=== PATIENT | male | born 1965 | race Caucasian/White ===

== ENCOUNTER 2016-12-01 15:29 | Inpatient (IN) | payer OTHER ==
--- NOTE | ~2016-12-01 | CR126 ---
[facility] A Service of [facility] RADIOLOGY TEXT RESULTS PATIENT: GOLD WELLS LOCATION: [facility] : [birth year] UNIT #: [id number] AGE: [address]: Rivka Brice MD SEX: M ORDER DR: [id number] [facility] [address] [facility]. [place], [place] [address] [id number] I MR#: [id number] Acc #: [id number] NAME: GOLD WELLS : 1965 SEX: M STUDY DATE/TIME: 12/01/2016 15:42 UNIT: [address] ROOM: [facility] STUDY DESCRIPTION: CR Foot Complete Min 3 View Lt Attending Physician: Rivka Brice M.D. Ordering Physician: Umm Lopez M.D. Primary Care Physician: Primary Care Physician No MEDICAL IMAGING REPORT This report is preliminary unless electronic signature is present EXAM Left foot. HISTORY Redness and open wound in heel region. Patient is diabetic. Fell one month ago. Symptoms began today. FINDINGS Three views of the left foot were obtained and compared to 11/10/2016. There is an abnormal appearance to the calcaneus which appears to be fractured. This fracture was visible on the prior study. There is loss of height of the calcaneus. The other bones appear normal. IMPRESSION There appears to be a recent fracture of the calcaneus with loss of height of the calcaneus. The fracture was visible on 11/20/2016 and there has not been a great deal of change. I do not see any definite evidence of osteomyelitis. Dictated by... Fer Balbuena M.D. THIS IS AN ELECTRONICALLY VERIFIED REPORT Fer Balbuena M.D. at 12/02/2016 12:24 PM ANDREW/parviz TD: 12/02/2016 07:41 JOB #: [id number] MEDICAL IMAGING REPORT [facility] A Service of [facility] RADIOLOGY TEXT RESULTS PATIENT: GOLD WELLS LOCATION: [facility] : [birth year] UNIT #: [id number] AGE: [address]: Rivka Brice MD SEX: M ORDER DR: RUTHIE
--- NOTE | ~2016-12-01 | XA166 ---
[facility] A Service of [facility] & [facility] RADIOLOGY TEXT RESULTS PATIENT: GOLD WELLS LOCATION: [facility] 478-01 : [birth year] UNIT #: [id number] AGE: [address]: Seng Hernandez MD SEX: M ORDER DR: [id number] [facility] [address] [facility]. [place], [place] [address] [id number] I MR#: [id number] Acc #: [id number] NAME: GOLD WELLS : 1965 SEX: M STUDY DATE/TIME: 12/04/2016 12:39 UNIT: [facility] ROOM: [facility] STUDY DESCRIPTION: XA PICC Line Placement WO Port Attending Physician: Seng Hernandez M.D. Ordering Physician: Seng Hernandez M.D. Primary Care Physician: No Primary Care Physician MEDICAL IMAGING REPORT This report is preliminary unless electronic signature is present PRE-PROCEDURE The procedure was explained to the patient and/or patient customer success representative including risks, benefits, potential complications and potential for alternative forms of treatment. Informed consent was obtained, and prior to initiating the procedure a formal timeout procedure was performed. INDICATION 51-year-old male who needs IV access for antibiotics. PROCEDURE Using full standard sterile barrier technique, including caps, gowns, gloves, masks, as well as sterile skin preparation and standard sterile draping, the right arm was prepped and draped in the usual fashion, and real-time sterile ultrasound guidance was used to localize an arm vein and to confirm vessel patency. A hard copy ultrasound image was recorded. Right basilic vein was utilized. After local anesthesia with 1% Xylocaine, the vein was punctured using real-time sterile ultrasound guidance, and an 0.018 guidewire was advanced into the superior vena cava, using fluoroscopic guidance. A 4-Mongolian 39 cm single-lumen PICC was then measured and deployed with the tip positioned in the superior vena cava. The position of the line was documented with a radiographic image. The line was secured in place with an adhesive dressing and an antibiotic patch was applied. Total fluoro time was 0.1 minutes. Reference air kerma is 3 mGy. IMPRESSION Successful placement of a 4-Mongolian 39 cm single-lumen PowerPICC via the right arm under ultrasound and fluoroscopic guidance. The tip of the PICC is in good position in the superior vena cava. Dictated by... Noel Myers M.D. [facility] A Service of [facility] RADIOLOGY TEXT RESULTS PATIENT: GOLD WELLS LOCATION: [facility]- : [birth year] UNIT #: [id number] AGE: [address]: Seng Hernandez MD SEX: M ORDER DR: THIS IS AN ELECTRONICALLY VERIFIED REPORT Noel Myers M.D. at 12/04/2016 4:58 PM Reji TD: 12/04/2016 16:43 JOB #: [id number] MEDICAL IMAGING REPORT COPY
--- NOTE | ~2016-12-01 | EKG ---
PATIENT: GOLD WELLS UNIT #: [id number] Ventricular Rate: 86 BPM Atrial Rate: 86 BPM P-R Interval: 146 ms QRS Duration: 86 ms Q-T Interval: 334 ms QTC Calculation(Bezet): 399 ms P [place]: 53 degrees Calculated R [place]: 45 degrees Calculated T [place]: 82 degrees Diagnosis Line: Normal sinus rhythm Diagnosis Line: Normal ECG Diagnosis Line: When compared with ECG of 27-OCT-2014 20:27, Diagnosis Line: No significant change was found Diagnosis Line: Confirmed by MARYAN COVINGTON MD ([id number]) on Diagnosis Line: 12/04/2016 12:03:36 AM INTERPRETING MD: NADYA KRISHNAMURTHY
--- NOTE | ~2016-12-01 | US136 ---
[facility] A Service of [facility] & [facility] RADIOLOGY TEXT RESULTS PATIENT: GOLD WELLS LOCATION: [place] [address]- : [birth year] UNIT #: [id number] AGE: [address]: Rivka Brice MD SEX: M ORDER DR: [id number] [facility] [address] [facility]. [place], [place] [address] [id number] I MR#: [id number] Acc #: [id number] NAME: GOLD WELLS : 1965 SEX: M STUDY DATE/TIME: 12/02/2016 15:23 UNIT: [facility] ROOM: [facility] STUDY DESCRIPTION: US U/L Ext Art Study Ltd Bilat Attending Physician: Rivka Brice M.D. Ordering Physician: Rivka Brice M.D. Primary Care Physician: No Primary Care Physician MEDICAL IMAGING REPORT This report is preliminary unless electronic signature is present EXAM Left ankle-brachial index. HISTORY 51-year-old male with history of diabetes, hypertension, hyperlipidemia, left lower extremity ulcerations. History of neuropathy and left foot wound. FINDINGS The left ankle-brachial index is 1.16. The left toe-brachial index is 0.7. IMPRESSION Normal left ankle-brachial index. Slightly decreased toe-brachial index, which may indicate small vessel disease in the left foot. Dictated by... Noel Myers M.D. THIS IS AN ELECTRONICALLY VERIFIED REPORT Noel Myers M.D. at 12/04/2016 7:38 AM VICKIE/uri TD: 12/03/2016 15:11 JOB #: [id number] MEDICAL IMAGING REPORT COPY
--- NOTE | ~2016-12-01 | DS ---
Unit #: [id number] #: [id number] Patient: GOLD WELLS [id number] [address] [place], [place] [address] [id number] I MR#: [id number] NAME: GOLD WELLS ROOM: 478 Age: 51 Sex: M Admission Date: 12/01/2016 : 1965 Discharge Date: 12/05/2016 Attending Physician: Seng Hernandez M.D. Primary Care Physician: Primary Care Physician No DISCHARGE SUMMARY ADMITTING DIAGNOSIS Open wound on heel. DISCHARGE DIAGNOSES Diabetes mellitus type 2, poorly controlled; neuropathy; hypertension; recent left calcaneal fracture with superimposed ulcer and treating as some possible left calcaneal osteomyelitis. CONSULTANTS Dr. Barbour. HISTORY OF PRESENTING ILLNESS The patient is a 51-year-old man with type 2 diabetes, poorly controlled; neuropathy; hypertension; post left calcaneal fracture a few weeks ago, presented to the emergency room with a chief complaint of purulent drainage from the left heel. HOSPITAL COURSE He had wound cultures done. Wound cultures grew MSSA and Streptococcus species. He was seen by Orthopedic Service, they recommended him to have nonweightbearing on the left leg. With the concern for recent calcaneal fracture, where the periosteum will get exposed and the wound culture growing bacteria. He is getting treated with antimicrobials. He also got an MRI of the foot done. The MRI of the foot shows comminuted central third collapsed calcaneal fracture, has a subacute appearance and nonenhancing fluid along the fracture lines. Wound in the posterior heel measures about 4.3 x 2.2 cm, marrow edema throughout the calcaneus, presumably be fascial related tibiotalar effusion, osteochondral chronic appearing lesion, edema throughout the talus, nonenhancing subcutaneous inflammation likely reactive. Though the MRI suggest there is no evidence of osteomyelitis with a high possibility of the fluid collection around the fracture. We are treating as an osteomyelitis. We got a PICC line in place. I spoke with the patient in detail, I explained him that the PICC line can increase risk for DVTs and if he noticed any edema of the feet, he needs to call the physician and I explained him about the possible complications of Rocephin including jaundice and anaphylactic reaction. He understands and agrees. We are trying to arrange for home IV antimicrobials. PHYSICAL EXAMINATION VITAL SIGNS: On the day of the discharge, temperature 98.1, pulse rate 88, respiratory rate 18, blood pressure 118/65. GENERAL: The patient is alert and oriented x3, lying in the bed, in no Unit #: [id number] #: [id number] Patient: GOLD WELLS acute distress. HEENT: Normocephalic, atraumatic. No icterus. VENKATESH. Extraocular muscles are intact. NECK: Supple. No JVD. HEART: S1 and S2. Regular rate and rhythm. CHEST: Bilateral equal entry. Clear to auscultation. ABDOMEN: Soft, nontender. EXTREMITIES: Left foot in dressing. DISCHARGE MEDICATIONS Include Lantus 55 units subcu daily, Tylenol p.r.n., Lyrica 150 mg p.o. t.i.d., Tradjenta 10 mg daily, hydrochlorothiazide 25 mg daily, simvastatin 20 mg daily, lisinopril 10 mg daily, and Rocephin 2 g IV daily for 6 weeks, multivitamin one capsule p.o. daily. FOLLOWUP He is instructed to follow up with his primary care and with Orthopedics as an outpatient. Total time spent in his care 35 minutes. Dictated by... Navdeep Del Real/akira TD: 12/07/2016 02:09 JOB #: [id number] DISCHARGE SUMMARY X X DISCHARGE SUMMARY
--- NOTE | ~2016-12-01 | HP ---
Unit #: [id number] #: [id number] Patient: GOLD WELLS [id number] [address] [address] [id number] I MR#: [id number] NAME: GOLD WELLS ROOM: 311 Age: 51 Sex: M Admission Date: 12/01/2016 : 1965 Attending Physician: Del Saul M.D. Primary Care Physician: No Primary Care Physician HISTORY AND PHYSICAL CHIEF COMPLAINT Open wound on heel. HISTORY OF PRESENT ILLNESS The patient is a 51-year-old male with a history of type 2 diabetes mellitus complicated with the neuropathy and hypertension and status post left calcaneal fracture a few weeks ago, brought to the emergency room complaining of the open wound with purulent drainage from the left heel. The patient had a calcaneal fracture back in November 07, 2016, seen by the foot doctor, Dr. Barbour, and recommended conservative management with a boot. Patient took boot off today and noticed the purulent and foul drainage associated with a tenderness. The patient denies any fever, chills, nausea and no vomiting. The patient is being admitted for the above reasons. PAST MEDICAL HISTORY 1. Type 2 diabetes mellitus. 2. Neuropathy. 3. Hypertension. 4. Hyperlipidemia. 5. History of a MRSA leg abscess with the cellulitis and he had incision and drainage of this abscess. ALLERGIES No known drug allergies. HOME MEDICATIONS Lantus, lisinopril, linagliptin, hydrochlorothiazide, Lyrica, simvastatin and Centrum. FAMILY HISTORY Significant for diabetes and hypertension. SOCIAL HISTORY Denies any history of tobacco, alcohol and illicit drug abuse. REVIEW OF SYMPTOMS Fourteen-point review of symptoms performed and only pertinent positive findings are described above, remaining are negative. PHYSICAL EXAMINATION GENERAL APPEARANCE: On examination the patient is lying on a bed not in acute distress. Unit #: [id number] #: [id number] Patient: GOLD WELLS VITAL SIGNS: Temperature 97.9, pulse 100, respiratory rate 16, blood pressure 141/99 and sating 97% at room air. HEENT: Head atraumatic, normocephalic. Pupils equal, round and reacting to light and accommodation. Extraocular movements are intact. NECK: Supple. No JVD. LUNGS: Clear to auscultation bilaterally. No rhonchi. No wheezing. HEART: Regular rate and rhythm. ABDOMEN: Soft, positive bowel sounds. EXTREMITIES: Left lower extremity heel with an open wound with seropurulent drainage and erosion. No fluctuance. NEUROLOGIC: Alert, awake, oriented. No gross focal motor deficit. PSYCHIATRIC: Mood and affect are appropriate. DIAGNOSTIC STUDIES LABORATORY DATA: Glucose 429, BUN 14, creatinine 0.7, sodium 133, potassium 4.8, chloride 97, bicarb 26, calcium 8.7, lactic acid is 1.3 and beta hydroxybutyrate is 0.1 and CRP is 1.8, INR is 0.9, WBC 7.3, hemoglobin 13.8, hematocrit 41.7, platelets 230. IMAGING: Left foot x-ray shows calcaneal fracture and no evidence of osteo. ASSESSMENT 1. Diabetic foot ulcer. 2. History of a left calcaneal fracture. 3. Uncontrolled diabetes. 4. Hypertension. PLAN 1. Plan to admit the patient to inpatient with the telemetry. 2. Continue with IV antibiotics. 3. Patient has wound cultures in [facility] that show the MSSA. Will give the dose of vancomycin x1 and continue with the Zosyn for the diabetic foot ulcer and continue with the sliding scale and will have the foot doctor, Dr. Barbour to evaluate for the I/D and repeat the CBC and BMP in the morning and taper the antibiotic with the wound cultures and further recommendations will follow. Dictated by Navdeep Mayfield TD: 12/01/2016 21:49 JOB #: [id number] Unit #: [id number] #: [id number] Patient: GOLD WELLS HISTORY AND PHYSICAL X X HISTORY AND PHYSICAL
--- NOTE | ~2016-12-01 | CO ---
Unit #: [id number] #: [id number] Patient: GOLD WELLS [id number] [address] [place], [place] [address] [id number] I MR#: [id number] NAME: GOLD WELLS ROOM: 311 Age: 51 Sex: M Admission Date: 12/01/2016 : 1965 Attending Physician: Rivka Brice M.D. CONSULTATION REPORT CHIEF COMPLAINT Open wound on heel. HISTORY OF PRESENT ILLNESS This is a 51-year-old male, who initially presented to the emergency department on 11/07/2016 with approximately a 2-week history of nontraumatic heel pain. Radiograph at that time demonstrated a left calcaneal fracture. There were no areas of open wound or open skin breakdown. He was seen and evaluated in the office by Dr. Barbour on 11/20/2016, treated conservatively in a CAM walker boot. The patient noticed yesterday when he was changing a socks that he had an open area of skin breakdown that was draining over the posterior aspect of the heel. He had not noticed this prior to yesterday. He does not have any significant pain as he has neuropathy. He has not had any fevers at home. There are no streaks of redness. PAST MEDICAL HISTORY Positive for type 2 diabetes, neuropathy, hypertension, hyperlipidemia. ALLERGIES He has no known drug allergies. HOME MEDICATIONS Include Lantus, lisinopril, linagliptin, hydrochlorothiazide, Lyrica, simvastatin, and Centrum Multivitamin. FAMILY HISTORY Positive for diabetes and hypertension. SOCIAL HISTORY The patient does not smoke, use alcohol, or drugs. REVIEW OF SYSTEMS Currently without any gastrointestinal, genitourinary, or cardiopulmonary symptoms. He has not had any fevers. He does not have any significant pain. PHYSICAL EXAMINATION GENERAL: On examination today, the patient is well-developed, well-nourished. He is comfortable, lying in bed. VITAL SIGNS: This a.m., temperature of 98, pulse is 79, respirations were 18, blood pressure 114/75. Unit #: [id number] #: [id number] Patient: GOLD WELLS DIAGNOSTIC STUDIES LABORATORY RESULTS: The patient's white blood cell count this morning 7.2. C-reactive protein 1.8. Glucose is 119. The patient's left lower extremity without erythema or warmth. There are no streaks of redness. Posterior heel area with skin breakdown. An eschar 5 x 3 cm currently without purulent drainage. The patient is neuropathic. He does not have pain in this area with palpation. I am unable to palpate posterior tibial pulse or dorsalis pedis pulses. IMAGING STUDIES: Radiographs taken on 11/07/2016, 11/20/2016, and 12/01/2016, with evidence of left calcaneal fracture. No significant changes in fracture fragments or additional displacement. IMPRESSION 1. Left calcaneal fracture, nontraumatic approximately 6 weeks ago with 1- day history of left posterior heel wound and skin breakdown likely from the CAM walker boot and noncompliance with this patient walking in the boot. 2. Peripheral vascular disease. 3. Diabetic neuropathy. PLAN We will need to assess blood flow to the area to see if this ulcer would have good healing with surgical or nonsurgical intervention, as well an MRI to rule out any infection and assess the fracture itself. The patient should be nonweightbearing to the left heel. He is able to get out to the bathroom to toe-touch ambulate on the left foot only. Dry dressing over the wound. We will discuss with Dr. Barbour. Dictated by... Yarelis Bradley P.A.-C. for Navdeep Barba/akira TD: 12/02/2016 12:27 JOB #: [id number] CONSULTATION REPORT X Yarelis Bradley CONSULTATION REPORT
--- NOTE | ~2016-12-01 | A ---
[facility] Nutrition Therapy DATE: 12/02/16 Patient: GOLD WELLS Physician: KESHAWN Address: [address] [facility] Room/Bed: [address] [place] [address], Zip: [place] [address] Admit Date: 12/01/16 Date of : [birth year] Height: 5 10 Weight: 229 104 NUTRITIONAL ASSESSMENT: REASON: CONSULT RE: DIET EDUCATION HT: 5'10", WT: 228# (104 KG), BMI: 32.7 RD PROVIDED WRITTEN AND VERBAL CC DIET EDUCATION. RD PROVIDED LIST OF FOODS TO AVOID/LIMIT AND FOODS TO EAT MORE OFTEN. RD EMPHASIZED IMPORTANCE OF CONSUMING 3 BALANCED MEALS DAILY. PT REPORTS CONSUMING LARGE AMOUNTS OF POTATOES, RICE, CORN AND PASTA. RD ENCOURAGED PORTION CONTROL. PT VERBALIZED UNDERSTANDING OF THE TOPIC. PT REPORTED NO DIET QUESTIONS AT THIS TIME. RD TO REMAIN AVAILABLE RECOMMENDATIONS: 1. ENCOURAGE COMPLIANCE OF CURRENT DIET ORDER-CC RD WILL F/U PER PROTOCOL Respectfully, [place] MERRILL MS, RD, LD Food and Nutritional Services [facility] cc: client file
--- NOTE | ~2016-12-01 | MR58 ---
[facility] A Service of [facility] & [facility] RADIOLOGY TEXT RESULTS PATIENT: GOLD WELLS LOCATION: [facility] 478-01 : [birth year] UNIT #: [id number] AGE: [address]: Seng Hernandez MD SEX: M ORDER DR: [id number] [facility] [address] [place], [place] [address] [id number] I MR#: [id number] #: [id number] NAME: GOLD WELLS : 1965 SEX: M STUDY DATE/TIME: 12/02/2016 UNIT: [facility] ROOM: [facility] STUDY DESCRIPTION: Foot WWo Contrast Lt Attending Physician: Rivka Brice M.D. Ordering Physician: Yarelis Bradley P.A.-C. Primary Care Physician: Primary Care Physician No MEDICAL IMAGING REPORT This report is preliminary unless electronic signature is present EXAM MRI of the left ankle and hindfoot without and with IV contrast, 12/02/2016. HISTORY Order states calcaneal fracture. Open wound calcaneus. Orthopedic progress note states 51-year diabetic male with left calcaneal fracture about 6 weeks ago. Initial ER visit to 11/07/2016 after 2 weeks of heel pain without known trauma. Office visit Dr. Barbour 11/20/2016, treated conservatively in CAM walker boot. Patient noticed an open area with drainage 12/01/2016 when taking the boot off. Patient with neuropathy but no significant pain. Physical exam shows skin breakdown posterior heel 5 x 3 cm. No purulent drainage. The technologist reports left foot open around the heel with drainage. No related heel surgery. Diabetic. Left leg abscess x3. COMPARISON Left foot radiographs 11/07/2016, 11/20/2016, 12/01/2016. A marker was placed in the area of the reported wound in the posterior heel. There is lack of skin definition for a 4.3 x 2.3 cm zone of the posterior heel (transverse by craniocaudal). Correlate with clinical exam as this area is along the posterior edge of the coil and exact dimensions are clear. There is no evidence of an underlying abscess. Marrow edema throughout the calcaneus without T1 marrow replacement is most compatible with fracture - related edema. There is no definite evidence of underlying osteomyelitis. There is no T1 marrow replacement. There is a collapsed subacute - appearing comminuted calcaneal fracture with 3 main fracture parts. There is depression of the posterior calcaneal facet. Dominant transverse vertical mid calcaneal fracture lines. The fracture lines are filled with nonenhancing fluid. The anterior plantar portion of the dominant posterior fragment is directed in STS. [facility] A Service of [facility] RADIOLOGY TEXT RESULTS PATIENT: GOLD WELLS LOCATION: [facility] 478-01 : [birth year] UNIT #: [id number] AGE: [address]: Seng Hernandez MD SEX: M ORDER DR: plantar fascia and with an angulated bony margin which could become weightbearing. There is no overlying ulceration. There is a moderate tibiotalar effusion. There is a chronic-appearing depressed osteochondral lesion of the medial portion of the posteromedial talar dome which could be post-traumatic or arthropathic. There is pes planus which may be acquired secondary to the calcaneal fracture. No tendon pathology is noted. No ligament pathology of the ankle is noted. There is no tendon entrapment. There is generalized subcutaneous inflammation/edema without significant enhancement which is more likely reactive than infectious. IMPRESSION 1. Comminuted central third collapsed calcaneal fracture has a subacute appearance and nonenhancing fluid along the fracture lines. 2. Skin wound/lesion posterior heel measures approximately 4.3 x 2.3 cm (correlate clinically as the measurements are limited due to this area being at the edge of the coil. There is no evidence of underlying abscess or osteomyelitis. 3. Marrow edema throughout the calcaneus is presumably fracture related. There is no T1 marrow replacement to suggest osteomyelitis. 4. Tibiotalar effusion. 5. Osteochondral chronic - appearing lesion in the posteromedial dome of the talus. 6. Edema throughout the talus is probably due to altered weightbearing/reactive edema. 7. Nonenhancing subcutaneous inflammation is likely reactive. Dictated by... Yara Rivera M.D. THIS IS AN ELECTRONICALLY VERIFIED REPORT Yara Rivera M.D. at 12/04/2016 2:08 PM GUERITA/parviz TD: 12/03/2016 14:12 JOB #: [id number] MEDICAL IMAGING REPORT COPY
[~2016-12-01 15:29] MED LIST: ACETAMINOPHEN PO; BACTRIM DS TABL1 TA1 PO; BACTRIM DS TABL1 TAB PO; CLINDAMYCIN HC300 MG PO; DAKIN'S MODIF1000 ML EXT; FIORICET 50-321 EACH PO; GLUCOTROL PO; IMITREX25 MG PO; KEFLEX PO; LEVEMIR; LEVEMIR SUBQ; LEVEMIR100 UNITS/ SUBQ; LISINOPRIL; LISINOPRIL PO; LISINOPRIL10 MG PO; LORTAB 10/500 T1 TAB PO; METFORMIN PO; NEURONTIN800 MG PO; NORCO 5/325 TAB1 TAB PO; NOVOFINE; NOVOLOG MIX 70/33 ML SUBQ; NOVOLOG100 U/M1; NOVOLOG100 U/ML SUBQ; PHENERGAN25 M1 PO; TYLOX 5/500 CAP1 CAP PO; VICODIN 5/1 TAB 5/50 PO; ZOCOR PO; ZYVOX PO; [UNRECOGNIZED DRUG - OTHER] SUBQ
[2016-12-01 16:00] LABS: BASOPHIL# 0.1 X10e3 (0-0.3); BASOPHIL% 1.3 % (0-2.5); DIFF IND NO; EOSINOPHIL# 0.4 X10e3 (0-0.7); HEMATOCRIT 41.7 % (38.0-50.0); HEMOGLOBIN 13.8 gm/dL (13.0-16.0); LYMPHOCYTE# 0.9 X10e3 (1.0-3.5); LYMPHOCYTE% 12.4 % (17.0-45.0); MEAN CELL VOLUME 86.4 FL (83-96); MEAN CORPUSCULAR HEMOGLOBIN 28.7 PG (28-34); MEAN CORPUSCULAR HGB CONC 33.2 g/dL (30-36); MEAN PLATELET VOLUME 7.5 FL (6.5-11.5); MONOCYTE# 0.5 X10e3 (0-1.0); MONOCYTE% 6.6 % (3.0-12.0); NEUTROPHIL# 5.4 X10e3 (1.5-7.1); NEUTROPHIL% 74.7 % (40-75); PLATELET COUNT 230 X10e3 (140-420); RED BLOOD COUNT 4.83 X10e (3.90-5.60); RED CELL DISTRIBUTION WIDTH 13.5 % (11.0-15.5); WHITE BLOOD COUNT 7.3 X10e3 (4.0-10.5)
[2016-12-01 16:17] LABS: INR 0.9
[2016-12-01 16:18] LABS: PARTIAL THROMBOPLASTIN TIME 26.2 SECONDS (23.5-31.3)
[2016-12-01 16:34] LABS: BLOOD UREA NITROGEN 14 mg/dL (9-23); CALCIUM SERUM 8.7 mg/dL (8.4-10.2); CARBON DIOXIDE 26 mmol/L (22-31); CHLORIDE 97 mmol/L (100-111); CREATININE SERUM 0.7 mg/dL (0.6-1.4); GLOM FILT RATE Estimated ABOVE60 mL/min (>60); GLUCOSE FASTING 429 mg/dL (70-110); POTASSIUM 4.8 mmol/L (3.5-5.1); SODIUM 133 mmol/L (135-145)
[2016-12-01] MEDS ORDERED: LANTUS100 U/ML SUBQ (16:55)
[2016-12-01] MEDS ORDERED: LISINOPRIL10 MG PO (16:55)
[2016-12-01] MEDS ORDERED: HCTZ PO (16:56)
[2016-12-01] MEDS ORDERED: TRADJENTA5 MG PO (16:56)
[2016-12-01] MEDS ORDERED: LYRICA PO (16:57)
[2016-12-01] MEDS ORDERED: SIMVASTATIN20 MG PO (16:57)
[2016-12-01] MEDS ORDERED: CENTRUM SILVER PO (16:58)
[2016-12-02 07:01] LABS: BASOPHIL# 0.1 X10e3 (0-0.3); BASOPHIL% 1.2 % (0-2.5); EOSINOPHIL# 0.4 X10e3 (0-0.7); EOSINOPHIL% 5.5 % (0.0-7.0); HEMATOCRIT 38.5 % (38.0-50.0); HEMOGLOBIN 12.7 gm/dL (13.0-16.0); LYMPHOCYTE# 1.7 X10e3 (1.0-3.5); LYMPHOCYTE% 23.2 % (17.0-45.0); MEAN CELL VOLUME 85.8 FL (83-96); MEAN CORPUSCULAR HEMOGLOBIN 28.3 PG (28-34); MEAN CORPUSCULAR HGB CONC 32.9 g/dL (30-36); MEAN PLATELET VOLUME 7.4 FL (6.5-11.5); MONOCYTE# 0.6 X10e3 (0-1.0); MONOCYTE% 8.3 % (3.0-12.0); NEUTROPHIL# 4.4 X10e3 (1.5-7.1); NEUTROPHIL% 61.8 % (40-75); PLATELET COUNT 206 X10e3 (140-420); RED BLOOD COUNT 4.49 X10e (3.90-5.60); RED CELL DISTRIBUTION WIDTH 13.4 % (11.0-15.5); WHITE BLOOD COUNT 7.2 X10e3 (4.0-10.5)
[2016-12-02 07:05] LABS: DIFF IND NO
[2016-12-02 07:26] LABS: BLOOD UREA NITROGEN 8 mg/dL (9-23); CALCIUM SERUM 8.3 mg/dL (8.4-10.2); CARBON DIOXIDE 28 mmol/L (22-31); CHLORIDE 104 mmol/L (100-111); CREATININE SERUM 0.5 mg/dL (0.6-1.4); GLOM FILT RATE Estimated ABOVE60 mL/min (>60); GLUCOSE FASTING 119 mg/dL (70-110); POTASSIUM 3.5 mmol/L (3.5-5.1); SODIUM 137 mmol/L (135-145)
[2016-12-03 07:04] LABS: BLOOD UREA NITROGEN 9 mg/dL (9-23); CALCIUM SERUM 8.7 mg/dL (8.4-10.2); CARBON DIOXIDE 30 mmol/L (22-31); CHLORIDE 101 mmol/L (100-111); CREATININE SERUM 0.6 mg/dL (0.6-1.4); GLOM FILT RATE Estimated ABOVE60 mL/min (>60); GLUCOSE FASTING 192 mg/dL (70-110); MAGNESIUM 1.9 mg/dL (1.6-3.0); POTASSIUM 4.2 mmol/L (3.5-5.1); SODIUM 138 mmol/L (135-145)
[2016-12-04 03:52] LABS: HEMATOCRIT 38.6 % (38.0-50.0); HEMOGLOBIN 12.6 gm/dL (13.0-16.0); MEAN CELL VOLUME 86.5 FL (83-96); MEAN CORPUSCULAR HEMOGLOBIN 28.2 PG (28-34); MEAN CORPUSCULAR HGB CONC 32.6 g/dL (30-36); MEAN PLATELET VOLUME 7.3 FL (6.5-11.5); RED BLOOD COUNT 4.47 X10e (3.90-5.60); RED CELL DISTRIBUTION WIDTH 13.5 % (11.0-15.5); WHITE BLOOD COUNT 6.2 X10e3 (4.0-10.5)
[2016-12-05] MEDS ORDERED: ROCEPHIN2 G/VIAL INJ (15:43)
[2016-12-05] MEDS ORDERED: ACETAMINOPHEN325 MG PO (15:43)
[2017-03-15] MEDS ORDERED: PERCOCET 7.5-31 EACH PO (15:32)
[2017-03-15] MEDS ORDERED: ELIQUIS5 MG PO (15:42)
[2017-03-15] MEDS ORDERED: COATED ASPIRIN325 M1 PO (15:44)
[2017-03-15] MEDS ORDERED: FLOMAX0.4 M1 (15:45)
[2017-03-15] MEDS ORDERED: MAG-OXIDE400 MG PO (15:45)
== END 2016-12-05 16:25 | disposition home health service (06) | DRG 638 ==
LOC: CED 15:29 → CEDOF 17:30 → C3A PCU 20:08 → C4C 12-03 10:05
PROVIDERS: Family Medicine; Internal Medicine; Student in an Organized Health Care Education/Training Program
PROC: 02HV33Z Insertion of Infusion Device into Superior Vena Cava, Percutaneous Approach (ICD-10-PCS; principal; 2016-12-04)
PROC: B548ZZA Ultrasonography of Superior Vena Cava, Guidance (ICD-10-PCS; 2016-12-04)
DX: E11.69 Type 2 diabetes mellitus with other specified complication (principal); M86.8X7 Other osteomyelitis, ankle and foot; G62.9 Polyneuropathy, unspecified; E11.621 Type 2 diabetes mellitus with foot ulcer; E11.65 Type 2 diabetes mellitus with hyperglycemia; E11.40 Type 2 diabetes mellitus with diabetic neuropathy, unspecified; L97.429 Non-pressure chronic ulcer of left heel and midfoot with unspecified severity; I10 Essential (primary) hypertension; E78.5 Hyperlipidemia, unspecified; Z86.14 Personal history of Methicillin resistant Staphylococcus aureus infection; Z83.3 Family history of diabetes mellitus; Z82.49 Family history of ischemic heart disease and other diseases of the circulatory system; Z79.4 Long term (current) use of insulin; S92.002D Unspecified fracture of left calcaneus, subsequent encounter for fracture with routine healing; I73.9 Peripheral vascular disease, unspecified; S91.302A Unspecified open wound, left foot, initial encounter; B95.61 Methicillin susceptible Staphylococcus aureus infection as the cause of diseases classified elsewhere; B95.5 Unspecified streptococcus as the cause of diseases classified elsewhere
CPT/HCPCS: 36415; 73630; 73720; 76937; 77001; 80048; 80202; 82010; 82947; 83036; 83605; 83735; 85025; 85027; 85610; 85730; 86140; 87040; 87070; 87077; 87186; 87205; 93005; 93922; 96360; 97116; 97162; 99285; A9577; C1751; J1642; J1650; J1815; J2270; J2405; J2543; J2550; J3370

== ENCOUNTER 2017-02-04 11:36 | Inpatient (IN) | payer OTHER ==
--- NOTE | ~2017-02-04 | CR72 ---
[facility] A Service of [facility] & [facility] RADIOLOGY TEXT RESULTS PATIENT: GOLD WELLS LOCATION: [address] : [birth year] UNIT #: [id number] AGE: [address]: HAYLEY SAUL MD SEX: M ORDER DR: [id number] [facility] [address] [facility]. [place], [place] [address] [id number] I MR#: [id number] Acc #: [id number] NAME: GOLD WELLS : 1965 SEX: M STUDY DATE/TIME: 02/04/2017 15:02 UNIT: [facility] ROOM: [facility] STUDY DESCRIPTION: CR Chest Single View Portable Attending Physician: Hayley Saul M.D. Ordering Physician: Ed Doctor [id number] [facility] Primary Care Physician: Jennifer Cohn M.D. MEDICAL IMAGING REPORT This report is preliminary unless electronic signature is present EXAM Portable chest HISTORY Congestion, chronic. Hypoglycemia. FINDINGS Mild linear atelectasis or scarring in the lateral right base and in the left lower lung. No airspace infiltrates or effusions. Cardiac size and pulmonary vascularity are normal. Partial resection of the right eighth rib. IMPRESSION No acute findings and no active disease. Dictated by... Shaquille Puente M.D. THIS IS AN ELECTRONICALLY VERIFIED REPORT Shaquille Puente M.D. at 02/05/2017 12:50 PM ANNIA/parviz TD: 02/05/2017 06:36 JOB #: [id number] MEDICAL IMAGING REPORT Page 1 of 1 COPY
--- NOTE | ~2017-02-04 | CR229 ---
[facility] A Service of [facility] & [facility] RADIOLOGY TEXT RESULTS PATIENT: GOLD WELLS LOCATION: [facility] 340-01 : [birth year] UNIT #: [id number] AGE: [address]: America Grimes MD SEX: M ORDER DR: [id number] [facility] [address] [facility]. [place], [place] [address] [id number] I MR#: [id number] Acc #: [id number] NAME: GOLD WELLS : 1965 SEX: M STUDY DATE/TIME: 02/13/2017 15:14 [facility]: [facility] STUDY DESCRIPTION: CR Shoulder Min 2 View Lt Attending Physician: America Grimes M.D. Ordering Physician: America Grimes M.D. Primary Care Physician: Jennifer Cohn M.D. MEDICAL IMAGING REPORT This report is preliminary unless electronic signature is present EXAM Left shoulder series, 02/13/2017. HISTORY Left shoulder pain, limited range of motion. History of rotator cuff tear, 1 week duration. FINDINGS AP, internal and external rotation views of the left shoulder are presented with a transscapular view. No traumatic fracture or malalignment. The acromioclavicular and glenohumeral joint relationships appear normal. There is a linear/band-like density superimposed over the soft tissues superficial to the acromioclavicular joint. This is favored to be either clothing artifact or some form of chronic soft tissue marking. I do not believe it is acute in time course. Periarticular soft tissues, otherwise, unremarkable. The visualized ribs are intact. The visualized pulmonary parenchyma has an appearance suggesting vascular congestion and increased interstitial markings in the left lung. This could simply reflect low lung volumes. Correlate with any clinical indications of interstitial edema or pneumonia. Dictated by... Gold Gonsalves M.D. THIS IS AN ELECTRONICALLY VERIFIED REPORT Gold Gonsalves M.D. at 02/13/2017 10:50 PM DARNELL/pantera TD: 02/13/2017 22:02 JOB #: [id number] [facility] A Service of [facility] RADIOLOGY TEXT RESULTS PATIENT: GOLD WELLS LOCATION: [facility] 340-01 : [birth year] UNIT #: [id number] AGE: [address]: America Grimes MD SEX: M ORDER DR: MEDICAL IMAGING REPORT Page 1 of 1 COPY
--- NOTE | ~2017-02-04 | CO ---
Unit #: [id number] #: [id number] Patient: GOLD WELLS [id number] [address] [address] [id number] I MR#: [id number] NAME: GOLD WELLS ROOM: 18670 Age: 51 Sex: M Admission Date: 02/04/2017 : 1965 Attending Physician: Del Saul M.D. Primary Care Physician: Jennifer Cohn M.D. CONSULTATION REPORT REASON FOR CONSULTATION Critical care management and hyperglycemia. CHIEF COMPLAINT Lethargy, weakness and high blood sugar. HISTORY OF PRESENT ILLNESS Patient presented with the complaint of high blood sugar, lethargy and weakness to the emergency room and was found to be hyperglycemic with a blood sugar of 1196. I am seeing him at the bedside complaining of generalized weakness and feels thirsty. He also has a left lower extremity wound which is dressed. Denies any abdominal pain. No nausea, no chest pain, no shortness of breath. REVIEW OF SYSTEMS Positive for pallor, no edema, no cyanosis, no jaundice and the rest is as per the history of present illness. The rest of 12-point review of system has been reviewed and is negative. PAST MEDICAL HISTORY 1. Type 2 diabetes. 2. Neuropathy. 3. Hypertension. 4. Dyslipidemia. 5. History of foot cellulitis. HOME MEDICATIONS 1. Lantus. 2. Lisinopril. 3. Linagliptin. 4. Hydrochlorothiazide. 5. Lyrica. 6. Simvastatin. 7. Centrum Silver. ALLERGIES No known drug allergies. SOCIAL HISTORY Nonsmoker, no alcohol, no drug abuse. FAMILY HISTORY Diabetes, hypertension. Unit #: [id number] #: [id number] Patient: GOLD WELLS PHYSICAL EXAMINATION VITAL SIGNS: Temperature currently 99, pulse 116, respirations 16, blood pressure 96/69. NEUROLOGIC: He is lethargic. LUNGS: Bilateral air entry, bilateral mild rhonchi. HEART: S1 plus S2. ABDOMEN: Nontender, soft. Positive bowel sounds. EXTREMITIES: Positive left foot ulcer. DIAGNOSTIC STUDIES LABORATORY: Blood glucose 822, creatinine 1.1, sodium 123. White count 16, hemoglobin 12, hematocrit 42, platelet count 361. ASSESSMENT AND PLAN 1. Hyperglycemia. 2. Left foot ulcer with possible cellulitis. 3. Leukocytosis. 4. Dehydration. 5. Hyponatremia. PLAN 1. Aggressively hydrate the patient. 2. Insulin drip per non-DKA protocol. 3. IV antibiotics empirically. 4. Follow blood cultures. 5. GI and DVT prophylaxis. 6. Will review imaging. 7. Patient will be closely monitored in the ICU. 8. Please see orders for detailed plan. Thank you very much for this consultation. Dictated by... Navdeep Blair/bailey TD: 02/04/2017 17:26 JOB #: [id number] CONSULTATION REPORT Page 1 of 1 X Sweetie Bond MD CONSULTATION REPORT
--- NOTE | ~2017-02-04 | HP ---
Unit #: [id number] #: [id number] Patient: GOLD WELLS [id number] [address] [address] [id number] I MR#: [id number] NAME: GOLD WELLS ROOM: 36891 Age: 51 Sex: M Admission Date: 02/04/2017 : 1965 Attending Physician: Del Saul M.D. Primary Care Physician: Jennifer Cohn M.D. HISTORY AND PHYSICAL CHIEF COMPLAINT Weakness. HISTORY OF PRESENT ILLNESS The patient is a 51-year-old male with a history of type 2 diabetes mellitus complicated with neuropathy, hypertension, and left calcaneal fracture complicated with osteomyelitis, who was discharged from the hospital on December 05 with six weeks of IV antibiotics. The patient was discharged home on IV antibiotic with Rocephin for MSSA and streptococcus species. The patient finished the antibiotic three weeks ago, and the PICC line was removed. The patient has been feeling sick for the last four to five days associated with lethargy and decreased oral intake. The patient stated that he was taking insulin; however, the sugars were remaining high. The patient has been following with a foot doctor, Dr. Barbour, for the graft of the left calcaneal fracture. The patient is scheduled to follow with Dr. Barbour tomorrow; however, patient was brought to the emergency room with nausea and weakness for four days. The patient was found to have high sugar in the range of 1146, sodium of 108, and potassium of 5.6. The patient is being admitted for the above reasons. Patient was in the emergency room for a few hours, then he spiked a fever up to 102.1. The patient's lactic acid is 2.1, and the patient is started on sepsis protocol also. PAST MEDICAL HISTORY 1. Type 2 diabetes mellitus. 2. Neuropathy. 3. Hypertension. 4. Hyperlipidemia. 5. History of MRSA leg abscess with cellulitis. He had incision and drainage of this abscess. 6. Osteomyelitis of the left calcaneus, status post fracture. ALLERGIES No known drug allergies. HOME MEDICATIONS 1. Insulin 45 subcutaneous every evening. 2. Lexapro. 3. Simvastatin. 4. Lisinopril. 5. Lasix. 6. Lyrica. Unit #: [id number] #: [id number] Patient: GOLD WELLS FAMILY HISTORY Diabetes and hypertension. SOCIAL HISTORY Denies any history of tobacco, alcohol, or any illicit drug abuse. REVIEW OF SYSTEMS A 14-point review of symptoms was performed and only pertinent positive findings are described above. The remaining are negative. PHYSICAL EXAMINATION GENERAL: Patient was lying on bed not in acute distress, appears tired and lethargic. VITAL SIGNS: Temperature 97.7, pulse 112, respiratory rate 18, blood pressure 102/79, and saturating 97% on room air. He had a temperature spike up to 102.1. HEENT: Head atraumatic, normocephalic. Pupils equal, round, and reacting to light and accommodation. Extraocular movements are intact. NECK: Supple. LUNGS: Decreased air entry at the bases. ABDOMEN: Soft. No abdominal tenderness. EXTREMITIES: No cyanosis, no clubbing. Patient has a dressing at the left foot status post grafting, and patient was recommended by podiatry, Dr. Barbour, that this needs to be changed by their service only. Patient has minimal erythema on the top of the lower leg. PSYCHIATRIC: Mood and affect are appropriate. NEUROLOGIC: Alert, awake, oriented. No gross focal motor deficit. DIAGNOSTIC STUDIES LABORATORY: His pH is 7.36, PCO2 of 35.3, PO2 of 65.7, and bicarb 20.1. Glucose 714, glucose 1196, down to 822, BUN 49, creatinine 1.1, sodium 118 and is up to 123, potassium 4.7, chloride 91, bicarb 18, calcium 8.5, total protein 5.9, total bilirubin 0.5, and alkaline phosphatase 131. Amylase 14 and lipase 15. LDH 73. Lactic acid is 2.1. Beta hydroxybutyrate is 2.1. Anion gap is 13. INR 0.9. WBC 16.4, hemoglobin 12.7, hematocrit 42.9, platelets 361,000, neutrophils 88.3, and bands 2%. Urinalysis shows glucose more than 1000. IMAGING: Chest x-ray shows no acute findings. ASSESSMENT 1. Hyperosmolar, hyperglycemic (1) ketosis. 2. Sepsis. 3. Profound hyponatremia. 4. Dehydration. PLAN 1. Admit as inpatient to ICU. 2. Patient will have DKA protocol and continue with fluids and insulin drip. 3. Patient will have endocrine and critical care consults. 4. Continue sepsis protocol. 5. Continue with empiric vancomycin and Zosyn. 6. Patient will have aggressive IV fluids and (2) management. 7. Further recommendations will follow as more lab results are available. Dictated by Unit #: [id number] #: [id number] Patient: GOLD WELLS M.D. AMA/am TD: 02/04/2017 20:24 JOB #: [id number] HISTORY AND PHYSICAL Page 1 of 1 X X HISTORY AND PHYSICAL
--- NOTE | ~2017-02-04 | CO ---
Unit #: [id number] #: [id number] Patient: GOLD WELLS [id number] [facility]. [address] [place], [place] [address] [id number] I MR#: [id number] NAME: GOLD WELLS ROOM: CIC2 Age: 51 Sex: M Admission Date: 02/04/2017 : 1965 Attending Physician: America Grimes M.D. Primary Care Physician: Jennifer Cohn M.D. Consultation Date: 02/04/2017 CONSULTATION REPORT REASON FOR CONSULTATION Hyperglycemia. HISTORY OF PRESENT ILLNESS A 51-year-old male with history of type 2 diabetes mellitus with peripheral neuropathy, hypertension, history of left calcaneal fracture with osteomyelitis, recently discharge in November. IV antibiotics which were recently stopped. He started not been feeling well over the last 4 to 5 five days with an increasing lethargy, decrease p.o. intake. The patient reports he was taking insulin. Her blood sugars were running high. On arrival in the emergency room, his blood glucose level was 1196 with creatinine 1.1, sodium 118, potassium 5.6, chloride 86, CO2 of 19, and some positive ketones. The patient was started on insulin drip in the ER and IV hydration and IV antibiotics, was transferred to the unit bed. On admission, the patient was febrile. Fever of 102, and later to 102.1. Note: The patient was seen in the ER. MEDICAL HISTORY Please see HPI. ALLERGIES No known drug allergies. HOME MEDICATIONS Lantus 45 units every evening, Lexapro, lisinopril, Lasix, Lyrica. FAMILY HISTORY Diabetes and hypertension. SOCIAL HISTORY Declines any history of alcohol, tobacco, or illicit drugs. REVIEW OF SYSTEMS 14-point review of system was reviewed. The patient is lethargic and unable to give any good review of system at this point. He is very somnolent. PHYSICAL EXAMINATION GENERAL: He looks lethargic, but not in acute respiratory distress. VITAL SIGNS: Temperature was febrile with a temperature of 102. His blood pressure is stable. HEENT: EOMI. Pupils reactive to light. NECK: Supple. No thyromegaly noted. CHEST: Good air entry. Unit #: [id number] #: [id number] Patient: GOLD WELLS CVS: Regular rhythm. No murmurs. ABDOMEN: Soft and nontender. Bowel sounds positive. EXTREMITIES: Has left foot ulcer. NEUROLOGIC: Moving all extremities. DIAGNOSTIC STUDIES LABORATORY RESULTS: Reviewed. ASSESSMENT 1. Mild diabetic ketoacidosis. 2. Pseudohyponatremia. 3. Hyperkalemia. 4. Acute kidney injury. 5. Sepsis. PLAN Plan is to continue insulin drip, IV hydration. Monitor electrolytes closely and replace as needed. Start mag and K protocol. Continue IV antibiotics. Thanks again for consultation. Dictated by... Navdeep Abrams/akira TD: 02/06/2017 05:44 JOB #: [id number] CONSULTATION REPORT Page 1 of 1 X Preston Doll MD X CONSULTATION REPORT
--- NOTE | ~2017-02-04 | OR ---
Unit #: [id number] #: [id number] Patient: GOLD WELLS [id number] [address] [place], [place] [address] [id number] I MR#: [id number] NAME: GOLD WELLS ROOM: 340 Date of Procedure: 02/08/2017 Admission Date: 02/04/2017 Surgeon: Veronica Barbour M.D. : 1965 Attending Physician: America Grimes M.D. Primary Care Physician: Jennifer Cohn M.D. PROCEDURE OPERATIVE NOTE PREOPERATIVE DIAGNOSIS Left calcaneal osteomyelitis. POSTOPERATIVE DIAGNOSIS 1. Left calcaneal osteomyelitis. 2. Left lower leg abscess. OPERATION PERFORMED Left chwgo-nsn-drxj amputation immediate postoperative long leg cast application ([id number]). SURGEON Veronica Barbour M.D. HVAC TECH Eran ANESTHESIA General. INDICATIONS FOR SURGERY The patient is a 51-year-old male with poorly-controlled diabetes who has sustained a fracture of his calcaneus approximately 10 weeks ago with minimal trauma. He now has developed a posterior heel ulceration. He was admitted four days ago with significant hypotension and a fever. Blood cultures ultimately grew methicillin-resistant Staphylococcus aureus. The patient is obviously septic. MRI of his left leg done yesterday demonstrates osteomyelitis of the calcaneus. Arterial brachial indices demonstrates enough blood supply for healing. The patient has an unsalvageable leg and is a poorly-controlled diabetic. He is therefore to undergo a zjnfa-qgq-kxtx amputation. DESCRIPTION OF THE PROCEDURE The patient was taken to the operating room, placed in a supine position, and general anesthetic was induced. The left lower extremity was identified as the correct operative extremity in the time-out procedure. The IV antibiotics protocol was not followed because he was on IV antibiotics preoperatively. The left leg was then prepped and draped in the usual sterile fashion. The leg was exsanguinated and the thigh tourniquet inflated to 300 mmHg. A transverse incision was made 14 cm distal to the knee, a long posterior flap was developed. The tibia was exposed subperiosteally and cut with the saw. The anterior distal tibia Unit #: [id number] #: [id number] Patient: GOLD WELLS was then beveled with the saw. The anterior compartment was divided and the anterior neurovascular bundle was doubly ligated with 0-silk. The fibula was exposed with subperiosteal dissection and the fibula was cut 2 cm proximal to the tibia. The amputation knife was then used to divide the posterior soft tissues. The posterior tibial vessels and peroneal vessels were identified and doubly ligate with 0-silk. The tibial nerve was dissected high in the wound and cut proximal to the tibia. There was purulence tracking up the lateral fascia and interosseous membrane into the calf, all necrotic-appearing and infected-appearing tissue was sharply divided. The wound was copiously irrigated with 2 liters of normal saline. Aerobic and anaerobic cultures were taken prior to irrigation. A medium Hemovac drain was placed. The tourniquet was released and bleeding was controlled with electrocautery. Tourniquet time was approximately 20 minutes. The posterior fascia was then repaired to the anterior fascia and periosteum of the tibia with multiple 0-Vicryl cydbtq-mk-admmh sutures. Subcutaneous tissues was closed with 2-0 Vicryl. Skin was closed with skin uri. Xeroform gauze dressing, sponges, Webril and a long leg fiberglass cast were then applied. A supracondylar mold was placed with the cast. The leg was immobilized in full extension. The patient was then awakened in the operating room and transported to the recovery room in stable condition. ESTIMATED BLOOD LOSS 50 mL. COMPLICATIONS None. SPECIMENS 1. Aerobic and anaerobic cultures of left calf. 2. Left leg. PLAN The cast will be left in place for one week. Will continue triple IV antibiotic coverage. Dictated byNavdeep Pardo/bailey TD: 02/08/2017 22:17 JOB #: [id number] Unit #: [id number] #: [id number] Patient: GOLD WELLS PROCEDURE OPERATIVE NOTE Page 1 of 1 X Iraida Barbour MD X PROCEDURE OPERATIVE NOTE
--- NOTE | ~2017-02-04 | CO ---
Unit #: [id number] #: [id number] Patient: GOLD WELLS [id number] [address] [address] [id number] I MR#: [id number] NAME: GOLD WELLS ROOM: 340 Age: 51 Sex: M Admission Date: 02/04/2017 : 1965 Attending Physician: America Grimes M.D. Primary Care Physician: Jennifer Cohn M.D. Consultation Date: 02/07/2017 CONSULTATION REPORT REASON FOR CONSULT Hyponatremia. HISTORY OF PRESENT ILLNESS Thank you very much for having us see this patient. This patient is a 51-year-old gentleman who presented to the hospital on 02/04/2017 where he had a sugar greater than 1100, fevers, was recently discharged in November for osteomyelitis of his left foot which grew out at that time MSSA and group B strep. He was treated with Rocephin for six weeks through a PICC line which he has completed that now. He presented here with fever, high glucose. Subsequently noted to have upon presentation a sodium of 118, it did improve up to 135 and subsequently has worsened again down to 126 even with sugar better controlled with only 204 glucose today. The patient since underwent an MRI yesterday. It showed a possible abscess of his left foot. Today, he states he is depressed. He is not having any shortness of breath or chest pain. He is not having any nausea or vomiting. No abdominal pain. Does have pain in his left foot. Since his admission, he has had one blood culture grow out methicillin-resistant Staphylococcus aureus as well. PAST MEDICAL HISTORY 1. History of diabetes mellitus. 2. History of peripheral neuropathy. 3. History of the left foot calcaneal fracture and infection. 4. History of hypertension. 5. History of hyperlipidemia. CURRENT MEDICATIONS Include: 1. Vancomycin. 2. Zosyn. 3. Lyrica. 4. Lovenox. 5. Zoloft. ALLERGIES No known drug allergies. SOCIAL HISTORY No smoking, no alcohol. FAMILY HISTORY Positive for diabetes, positive for hypertension. Unit #: [id number] #: [id number] Patient: GOLD WELLS REVIEW OF SYSTEMS As mentioned in the HPI, otherwise negative. PHYSICAL EXAMINATION VITAL SIGNS: T. max 102.9, pulse 106 to 123, blood pressure 109 to 140 over 60s to 80s. He has had about 11 liters in and about 3+ liters out over the last 48 hours. HEENT: Normocephalic, atraumatic. Pupils equal, round and reactive to light. Extraocular muscles are intact. Hearing appears to be normal. Mouth is clear, no erythema or exudate. NECK: Supple. No adenopathy. HEART: He appears to have a regular rhythm without a rub. No S3 or S4 although it is tachycardic. LUNGS: Clear bilaterally. No wheezes, rhonchi or rales. ABDOMEN: Bowel sounds positive. Nontender, soft. No mass felt, no hepatosplenomegaly noted. EXTREMITIES: His left foot is dressed. He does have some mild bilateral lower extremity edema and some mild thigh edema. GENITOURINARY: Deferred. DIAGNOSTIC STUDIES LABORATORY: Sodium 126 today, potassium 4.4, chloride 97, bicarb 21, BUN 15, creatinine 0.5, glucose 204. UA upon admission showed specific gravity of 1.028, greater than 1000 glucose, no rbc's, no proteinuria. His hemoglobin is 10.4, white count is 23,100, platelets 417,000. Phosphorus 2.2. All are being replaced already. Calcium 7.9, magnesium 2, albumin 1.4. ASSESSMENT AND PLAN Hyponatremia. This gentleman has severe low sodium upon admission although that was most likely secondary to intracellular shifts from hyperglycemia although it improved and now worsening again. Certainly, I do not know the exact etiology. He does have some edema, low albumin. I do not know if this is related to hypervolemia hyponatremia versus euvolemia hyponatremia versus other. His urinalysis showed no proteinuria so I doubt he has any significant nephrotic syndrome. PLAN 1. Will check a TSH and a cortisol level in the morning. 2. Will place him on an 1800 mL p.o. fluid restriction per day. 3. Check a urine sodium and urine osmolality. 4. Will continue to follow. Will check in a.m. Depending on what it shows will depend what further workup and treatment. Dictated byNavdeep Casey TD: 02/07/2017 17:53 JOB #: [id number] Unit #: [id number] #: [id number] Patient: GOLD WELLS CONSULTATION REPORT Page 1 of 1 X Tahmina Casanova MD CONSULTATION REPORT
--- NOTE | ~2017-02-04 | MR58 ---
[facility] A Service of [facility] RADIOLOGY TEXT RESULTS PATIENT: GOLD WELLS LOCATION: [facility] 340-01 : [birth year] UNIT #: [id number] AGE: [address]: America Grimes MD SEX: M ORDER DR: [id number] [facility] [address] [place], [place] [address] [id number] I MR#: [id number] Acc #: [id number] NAME: GOLD WELLS : 1965 SEX: M STUDY DATE/TIME: 02/06/2017 17:33 [facility] ROOM: [facility] STUDY DESCRIPTION: Foot WWo Contrast Lt Attending Physician: America Grimes M.D. Ordering Physician: Physician Non-Staff Primary Care Physician: Jennifer Cohn M.D. MRI CENTER REPORT This report is preliminary unless electronic signature is present. EXAM MRI left ankle, hindfoot, and midfoot without and with IV contrast, 02/06/2017. HISTORY Order states MRI left heel rule out abscess/osteo. Infectious disease progress note 02/06/2017 states gram-positive JCP bacteremia. Recent heel osteo, status post treatment with skin graft. DKA. History sheet states patient has been receiving grafts after debridement on left heel for 6 months. 1 month ago became ill and could not get treatment. Sore or the bottom of the heel became worse. Came to the hospital 02/04/2017. Foot is heavily wrapped. 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 COMPARISON Consultation report [facility], Brenda Faith A.P.R.N. for Aidan Cm M.D. dated 02/05/2017; left foot radiographs 02/05/2017; MRI left ankle/hindfoot to 12/02/2016. FINDINGS It is not reported whether the patient has a current wound or ulceration. There is loss of skin definition and underlying subcutaneous fat/soft tissue posterior to the heel. Suspected wound or ulceration versus nonenhancing underperfused or nonperfused skin measures up to 4.4 x 3.2 cm (transverse by craniocaudal). Again noted is a comminuted, intraarticular, central third, calcaneal fracture which may represent an atypical neuropathic fracture given history and no trauma. There has been development of sizable, nonenhancing, complex signal fluid collections plantar, medial, and anteromedial to the calcaneus. The plantar and medial fluid collection measures at least 8 cm in AP dimension by 4.4 cm in transverse dimension [facility] A Service of [facility] RADIOLOGY TEXT RESULTS PATIENT: GOLD WELLS LOCATION: [facility] 340-01 : [birth year] UNIT #: [id number] AGE: [address]: America Grimes MD SEX: M ORDER DR: and communicates with the posterior vertical fracture line at the level of the posterior aspect of the posterior facet. There is probable involvement of the flexor hallucis longus tendon sheath and flexor digitorum longus tendon sheath. The vertical fracture line communicates with the posterior subtalar joint raising the possibility of septic arthritis. In addition, there is progressive fluid and synovitis in the tibiotalar joint with cranial extension lateral to the tibiotalar joint, distal tibia, and fibula extending into the lower leg and anterior compartment. Findings could reflect tracking fluid/abscess and/or nonenhancing necrotic or underperfused muscle in the anterior compartment of the lower leg. There is concern for septic tenosynovitis of the extensor digitorum. Calcaneal collapse is again noted. There is significantly progressive abnormal marrow signal throughout the calcaneus with areas of T1 marrow replacement, especially laterally and posteriorly, compatible with osteomyelitis. There has been development of a subarticular subchondral fracture of the anteromedial dome of talus at the site of a previous osteochondral abnormality. Diffuse signal abnormality throughout the talus could be secondary to early osteomyelitis and or osteonecrosis. There has also been development of abnormal signal in the distal fibula and along the physial scar of the distal tibia. Fibular findings are most suggestive of a stress or insufficiency fracture across the medullary space. Trabecular microfracture across the tibial physial scar is suspected. There has been interval detachment of the plantar fascia from the calcaneus with interposed fluid/abscess related to the large 8 x 4.4 cm collection. Cuboid, navicular, cuneiforms, and metatarsal bases show no evidence of osteomyelitis. There is a signal void in the medial hindfoot subcutaneous space just superficial to the distal posterior tibial tendon. This could reflect gas or susceptibility from prior surgery. IMPRESSION 1. Significantly progressive abnormalities throughout the lower leg, ankle, and hindfoot since the previous MRI of 12/02/2016. There is a posterior heel sizable skin and soft tissue defect (correlate with clinical exam) which appears to measure at least 4.4 x 3.2 cm. 2. Collapsed comminuted intraarticular calcaneal fracture could reflect an atypical neuropathic fracture given reported clinical history. 3. Development of a large nonenhancing complex signal fluid collection measuring least 8.0 x 4.4 cm plantar to the calcaneus extending into STS. [facility] A Service of [facility] RADIOLOGY TEXT RESULTS PATIENT: GOLD WELLS LOCATION: [facility] 340-01 : [birth year] UNIT #: [id number] AGE: [address]: America Grimes MD SEX: M ORDER DR: the posterior vertical fracture line and extending along the anteromedial calcaneus. Findings are compatible with a large abscess and/or soft tissue necrotic or underperfused soft tissue. Abscess is favored. 4. Cranially extending soft tissue signal abnormality extending anterior to the ankle and into the lower leg, predominately in the anterior compartment. Findings are compatible with additional complex signal fluid and/or nonperfused or underperfused soft tissue. 5. Concern for septic tenosynovitis of extensor digitorum, flexor hallucis longus, and probably flexor digitorum tendons. 6. Development of a subarticular fracture of the talar dome detailed above. 7. Development of osteomyelitis of the calcaneus. 8. Osteomyelitis and/or avascular necrosis of the talus. 9. Transverse at least trabecular stress or insufficiency fracture of the fibula at the level of the tibiotalar joint. 10. Trabecular microfracture across the physial scar of the tibia. 11. Gas versus postsurgical susceptibility artifact superficial to the distal posterior tibial tendon. 12. Interval detachment of the plantar fascia from the calcaneus with interposed abscess detailed above. STAT * RESULT Dictated by... Yara Rivera M.D. THIS IS AN ELECTRONICALLY VERIFIED REPORT Yara Rivera M.D. at 02/07/2017 11:24 AM GUERITA/nano TD: 02/07/2017 10:06 JOB #: [id number] MRI CENTER REPORT Page 1 of 1 COPY
--- NOTE | ~2017-02-04 | CO ---
Unit #: [id number] #: [id number] Patient: GOLD WELLS [id number] [address] [address] [id number] I MR#: [id number] NAME: GOLD WELLS ROOM: CIC2 Age: 51 Sex: M Admission Date: 02/04/2017 : 1965 Attending Physician: Del Saul M.D. Primary Care Physician: Jennifer Cohn M.D. Consultation Date: 02/05/2017 CONSULTATION REPORT REASON FOR CONSULTATION Positive blood cultures. HISTORY OF PRESENT ILLNESS This is a 51-year-old male with history of diabetes who was recently treated for left calcaneus osteomyelitis secondary to MSSA and group B strep with six weeks of Rocephin. The patient completed his course approximately 3 weeks ago. Per the family at the bedside, he has been feeling ill for approximately 1 week with decreasing appetite, oral intake and progressive lethargy and weakness. The patient was admitted to the emergency room and was found to be in DKA. The patient is being managed by Endocrinology but was also noted to have some leukocytosis and fever and one of two positive blood cultures shows Gram-positive cocci. The patient was started on vancomycin and Zosyn and ID was asked to evaluate for further management. PAST MEDICAL HISTORY Includes: 1. Diabetes type 2. 2. Neuropathy. 3. Hypertension. 4. Hyperlipidemia. 5. History of MRSA leg abscess in the past with associated cellulitis. 6. Osteomyelitis left calcaneus status post fracture. HOME MEDICATIONS 1. Vancomycin. 2. Zosyn. For other medications, please refer to patient's MAR. He is not on any pressor support but remains in the ICU. ALLERGIES No known allergies. SOCIAL HISTORY Patient denies any tobacco, alcohol, or IV drug use. REVIEW OF SYSTEMS Patient reports some intermittent headache that appears to develop when he has fever. He denies any shortness of breath, cough. He denies any current nausea, vomiting or diarrhea, however, per the family that is at the bedside, last week the patient did have some nausea and vomiting x1 and some austin-colored stool. The patient denies any pain in his lower Unit #: [id number] #: [id number] Patient: GOLD WELLS extremities. He appears to waken easily during exam. PHYSICAL EXAMINATION VITAL SIGNS: Temperature 101.3 with a T. max of 102.3, pulse 83, blood pressure 113/71, respiratory rate 26. GENERAL: This is an easy to awaken male who is resting in the bed comfortably. HEENT: Pupils are equal. NECK: Supple. LUNGS: Clear to auscultation bilaterally with no wheezes or rhonchi noted. HEART: S1, S2. Regular rate and rhythm. ABDOMEN: Positive bowel sounds. Soft and nontender. EXTREMITIES: Left lower extremity is currently in a dressing. The exposed toes and foot does not have any significant erythema or heat. He is able to move his leg without difficulty. DIAGNOSTIC STUDIES LABORATORY: Glucose is currently 174 and on admission was 1196, BUN 22, creatinine 0.7, sodium 135, potassium 3.8, chloride 107, CO2 is 21, bilirubin 0.5, AST 20, ALT 22, alkaline phosphatase 131. Lactic acid 1.5 which is improved from 2.1 on admission. Procalcitonin 18.4. White blood cell count is 18.9 which an increase from 16.4 on admission, hemoglobin 11.4, hematocrit 34.9, platelets 369. Influenza screen is negative. Urinalysis unremarkable except for greater than 1000 glucose. MICROBIOLOGY: Urine culture is negative. Blood culture 1 of 1 Gram-positive cocci. Repeat blood cultures are currently pending. IMAGING: Please see full reports for complete details. There is an MR of his foot with and without contrast that continued to show calcaneal fracture with nonenhancing fluid collection along the fracture lines. There is a skin wound noted on the exam but no evidence of underlying abscess or osteomyelitis. Ultrasound of the lower extremities showed normal left ABIs. Chest x-ray showed no acute chest findings. IMPRESSION This is a 51-year-old male with recent completion of antibiotic therapy for left calcaneus osteomyelitis secondary to MSSA and group B strep with Rocephin. The patient has been off treatment for approximately three weeks. For the last one week, patient has had some increasing lethargy and anorexia. Found to have DKA on admission with glucose greater than 1000. The patient now is also noted to have some leukocytosis and fever with elevated procalcitonin level and blood cultures 1 of 1 with Gram-positive cocci. At this time, no clear source except possibly the foot. However difficult to examine due to patient having a dressing in place by Dr. Barbour for a recent graft placement. At this time, will continue vancomycin and Zosyn. Will follow the ID of the Gram-positive cocci and the repeat blood cultures that have been drawn this morning. The patient does have leukocytosis and fever, but he does not have any hypotension and he does not appear toxic during my exam. CT also does not show any abscess or osteomyelitis and ABIs are fairly normal. At this time, will continue with aggressive antibiotic therapy and follow patient's progress. This case will be discussed with Dr. Aidan Cm who will evaluate this Unit #: [id number] #: [id number] Patient: GOLD WELLS patient today. Thank you for allowing us to participate in the care of this patient. Further recommendations to follow pending patient's clinical course. Dictated by... Erica Weber A.P.R.N. for Navdeep Sargent/bailey TD: 02/05/2017 18:20 JOB #: [id number] CONSULTATION REPORT Page 1 of 1 X X CONSULTATION REPORT
--- NOTE | ~2017-02-04 | EKG ---
PATIENT: GOLD WELLS UNIT #: [id number] Ventricular Rate: 117 BPM Atrial Rate: 117 BPM P-R Interval: 124 ms QRS Duration: 96 ms Q-T Interval: 324 ms QTC Calculation(Bezet): 451 ms P Cisne: 57 degrees Calculated R Cisne: 46 degrees Calculated T Cisne: 52 degrees Diagnosis Line: Sinus tachycardia Diagnosis Line: Nonspecific ST abnormality Diagnosis Line: Abnormal ECG Diagnosis Line: When compared with ECG of 02-DEC-2016 11:50, Diagnosis Line: No significant change was found Diagnosis Line: Confirmed by MARYAN COVINGTON MD ([id number]) on Diagnosis Line: 02/05/2017 8:37:21 AM INTERPRETING MD: NADYA KRISHNAMURTHY
--- NOTE | ~2017-02-04 | FU ---
[facility] Nutrition Therapy DATE: 02/09/17 Patient: GOLD WELLS Physician: KESHAWN Address: [address] Room/Bed: [address] [place] [address], Zip: [place] [address] Admit Date: 02/04/17 Date of : [birth year] Height: 5 9 Weight: 251 114 NUTRITION MONITORING/FOLLOW-UP: Reason: Nutrition follow-up Admitting Dx: 51 y/o male admitted with sepsis, weakness, DKA Anthropometrics: Ht: 69", admission wt: 101 kg, current wt: 114 kg (accurate?), BMI: 32 (Stage I obese; based on admission wt), adjusted IBW (L BKA): 68.2 kg, 149% IBW Labs: A1C 14.1 (02/04/17; up from previous admission), glucose POC 72-160, Na 133, K/Mg/Phos WNL Meds: Novolog (high SSI), Levemir, Colace, Milk of Mg, PPI, Phenergan/Zofran prn, morphine GI: Last BM 02/04 (stool softener given, awaiting results) Skin: s/p Left BKA, hemovac LLE, no edema Estimated Nutrition Needs: Increased protein needs due to recent surgery (L BKA) Assessment: Chart reviewed, events noted. Patient transferred out of ICU 3 days ago, now POD #1 left BKA due to calcaneus osteomyelitis. Hx uncontrolled DM with neuropathy, new A1C lab 14.2 on 02/04/17 (up from previous admissiom). Patient is tolerating a 60g carb diet with intake 75-100% of meals, on 1800 ml fluid restriction due to hyponatremia. RD previously educated on diabetic diet on 12/02/16, provided additional handouts on diet today and briefly reviewed with family present, however the patient will need reinforcement because he is on pain meds. Also discussed importance of protein-rich foods in diet to promote wound healing, patient agreed. See nutrition goals, dx and recs as stated below. Will follow to reinforce diet education. Dx: 1) Stage I obese r/t diet, lifestyle, PMH AEB BMI 32 - ACTIVE 2) Altered nutrition related labs r/t dietary and insulin non-compliance AEB A1C 12.7 on 12/02/16, DKA, glucose POC 165-286 - ACTIVE (note new A1C lab and current glucose POC) Intervention: Diet education Monitoring, Evaluation and Goals: 1. Tolerance of diet education with intake > 50% of meals - MET 2. Improvement in labs - IN PROGRESS 3. Promote wound healing - IN PROGRESS 4. Once appropriate; promote gradual weight loss -NOT YET APPROPRIATE [facility] Nutrition Therapy DATE: 02/09/17 Patient: GOLD LESLIERODNEY Physician: KESHAWN Address: [address] [place] [address] Room/Bed: [address] [place] [address], Zip: [place] [address] Admit Date: 02/04/17 Date of : [birth year] Height: 5 9 Weight: 251 114 Recommendations: 1. Continue current diet, encourage protein-rich foods. Fluid restriction per MD. 2. RD provided diabetic diet education handouts with contact info. Patient will need reinforcement, please consult prior to discharge. 3. Continue bowel regimen to promote regular BM's. Encourage fluids as allowed. Status: Mild nutrition risk Respectfully, Marilia Hathaway RD, LD [facility] cc: client file
--- NOTE | ~2017-02-04 | DS ---
Unit #: [id number] #: [id number] Patient: GOLD WELLS [id number] [address] [address] [id number] I MR#: [id number] NAME: GOLD WELLS ROOM: 340 Age: 51 Sex: M Admission Date: 02/04/2017 : 1965 Discharge Date: Attending Physician: America Grimes M.D. Primary Care Physician: Jennifer Cohn M.D. DISCHARGE SUMMARY DISCHARGE DIAGNOSES 1. Left calcaneal osteomyelitis and left lower leg abscess. 2. Status post left below-knee amputation. 3. Hypernatremia. 4. Diabetes mellitus, type 2, uncontrolled. 5. Sepsis with methicillin-resistant Staphylococcus aureus leg wound. 6. Gram-positive cocci bacteremia with methicillin-resistant Staphylococcus aureus. 7. Nonketotic hyperglycemia. 8. Moderate protein malnutrition. 9. Hypophosphatemia. 10. Hypocalcemia. 11. History of diabetic neuropathy. 12. Hyperlipidemia. 13. Hypertension. 14. History of osteomyelitis of left calcaneus, status post fracture. 15. Hypokalemia. 16. Anemia, acute on chronic, iron deficiency, no active bleeding. 17. Right lower leg wound. 18. Diabetic ketoacidosis, mild, resolved. CONSULTATIONS 1. Dr. Barbour. 2. Dr. Casanova. 3. Dr. Doll. 4. Dr. Bond. PROCEDURE Patient had left below-knee amputation, immediate postoperative long leg cast application. DIAGNOSTIC STUDIES LABORATORY: Glucose 76, sodium 130, potassium 4.9, creatinine 0.6. WBC 13.3, hemoglobin 8.2, platelets 575,000. Cultures: Leg wound is growing MRSA. Blood cultures are growing MRSA. IMAGING: X-ray of the shoulder shows no acute changes. MRI of the left foot shows significant abnormalities. Calcaneal fracture present. Large abscess near the calcaneal area present. Osteomyelitis present. ALLERGIES None. Unit #: [id number] #: [id number] Patient: GOLD WELLS DISCHARGE MEDICATIONS 1. Lyrica 150 p.o. three times daily. 2. Lexapro 20 daily. 3. Coreg 3.125 p.o. b.i.d. 4. Colace 100 p.o. b.i.d. 5. Milk of Magnesia 30 mL daily p.r.n. 6. Lasix 40 daily. 7. Simvastatin 20 daily. 8. Vancomycin 2000 mg IV b.i.d. Pharmacy to dose and stop date February 18, 2017. HOSPITALIZATION COURSE This is a 51 year old admitted because of left foot wound. Left foot wound with MRSA diabetic wound ulcer with calcaneal fracture and abscess with sepsis. The patient is seen by infectious disease and orthopedics. The patient had left leg BKA. Patient received broad-spectrum antibiotics. Currently, wound culture and blood culture are growing MRSA. The patient will be discharged on vancomycin, stop date February 18, 2017. Patient will have PICC line. Gram-positive bacteremia with MRSA: Continue with IV antibiotics. Mild DKA with nonketotic hyperglycemia also: Patient received insulin. Currently, blood sugars are mildly elevated. Continue with insulin, per Dr. Doll. Hyponatremia: The patient is seen by Dr. Casanova. Patient currently on Lasix and fluid restriction. Continue with that at rehab. Diabetes mellitus type 2 with neuropathy uncontrolled: Continue with insulin. Moderate protein malnutrition: Continue with diet as per dietitian. Fluid overload with right leg swelling: Patient is on Lasix. Continue fluid restriction. It could be mostly from immobility also. DISPOSITION Discharge to rehab if okay with orthopedics. FOLLOWUP 1. Follow with Dr. Doll in three weeks' time. 2. Follow with Dr. Barbour as advised. 3. Patient will have BMP, CBC on February 16, 2017 and February 18, 2017. MD at rehab to follow and adjust dose of vancomycin accordingly. PICC line to be discontinued after the last dose of antibiotics. Discharge time taken is 40 minutes. Dictated by... America Grimes M.D. EMILY/morgan Unit #: [id number] #: [id number] Patient: GOLD WELLS TD: 02/14/2017 12:29 JOB #: [id number] DISCHARGE SUMMARY Page 1 of 1 X America Grimes MD X DISCHARGE SUMMARY
--- NOTE | ~2017-02-04 | US136 ---
[facility] A Service of [facility] RADIOLOGY TEXT RESULTS PATIENT: GOLD WELLS LOCATION: [facility] : [birth year] UNIT #: [id number] AGE: [address]: America Grimes MD SEX: M ORDER DR: [id number] [facility] [address]. [place], [place] [address] [id number] MR#: [id number] Acc #: [id number] NAME: GOLD WELLS : 1965 SEX: M STUDY DATE/TIME: 02/07/2017 9:10 UNIT: [address] ROOM: [facility] STUDY DESCRIPTION: US U/L Ext Art Study Ltd Bilat Attending Physician: America Grimes M.D. Ordering Physician: Veronica Barbour M.D. Primary Care Physician: Jennifer Cohn M.D. MEDICAL IMAGING REPORT This report is preliminary unless electronic signature is present EXAM Ankle to brachial indices date of examination 02/07/2017 HISTORY Claudication. FINDINGS The right brachial artery pressure was not measured. The left brachial artery pressure is 128. The right dorsalis pedis pressure is 121, posterior tibial 80, and toe 65 for an ankle to brachial index of 0.95. The left dorsalis pedis pressure is 109, posterior tibial 108, and toe 40 for an ankle to brachial index of 0.85. Pulse volume recording tracings demonstrate mild damping of the amplitude of the signal at the right ankle level compared to the left. Doppler waveform analysis indicates a biphasic signal in the posterior tibial and dorsalis pedis arteries bilaterally. IMPRESSION Normal perfusion to the right leg with an ankle to brachial index of 0.95. Mild ischemia of the left leg with an ankle to brachial index of 0.85. Small vessel occlusive disease involving both feet. Dictated by... Thuan Pinon M.D. THIS IS AN ELECTRONICALLY VERIFIED REPORT [facility] A Service [facility] RADIOLOGY TEXT RESULTS PATIENT: GOLD WELLS LOCATION: [facility] : [birth year] UNIT #: [id number] AGE: [address]: America Grimes MD SEX: M ORDER DR: Thuan Pinon M.D. at 02/08/2017 7:32 AM SIN/rnnadir TD: 02/07/2017 16:04 JOB #: [id number] MEDICAL IMAGING REPORT Page 1 of 1 COPY
--- NOTE | ~2017-02-04 | CR126 ---
[facility] A Service of [facility] RADIOLOGY TEXT RESULTS PATIENT: GOLD WELLS LOCATION: [facility] 340-01 : [birth year] UNIT #: [id number] AGE: [address]: America Grimes MD SEX: M ORDER DR: [id number] [place] [id number] [facility]. [place], [place] [address] [id number] MR#: [id number] Acc #: [id number] NAME: GOLD WELLS : 1965 SEX: M STUDY DATE/TIME: 02/05/2017 20:43 UNIT: [facility] ROOM: [facility] STUDY DESCRIPTION: CR Foot Complete Min 3 View Lt Attending Physician: Del Saul M.D. Ordering Physician: Kari Underwood M.D. Primary Care Physician: Jennifer Cohn M.D. MEDICAL IMAGING REPORT This report is preliminary unless electronic signature is present EXAM Left foot, 3 views INDICATIONS Concern for possible foot infection. Comparison with 12/01/2016. FINDINGS Redemonstrated is what appears to be a calcaneal fracture. There is generalized osteopenia. This limits the sensitivity of the examination. The osteopenia appears to have worsened since the previous study. No definite acute fracture. No dislocation. Vascular calcifications. There is probably a heel ulcer as well. IMPRESSION 1. Worsening osteopenia, which limits the sensitivity of the examination. No obvious radiographic signs for osteomyelitis. Therefore, if clinical concern for osteomyelitis, further evaluation with MRI or bone scan would be helpful. 2. There appears to be a fracture of the calcaneus, which was seen on the prior study as well. It does not appear to be significantly changed. 3. Vascular calcifications. 4. Heel ulcer. Dictated by... Noel Myers M.D. THIS IS AN ELECTRONICALLY VERIFIED REPORT Noel Myers M.D. at 02/07/2017 7:28 AM ARS/psc TD: 02/06/2017 02:51 [facility] A Service of [facility] RADIOLOGY TEXT RESULTS PATIENT: GOLD WELLS LOCATION: [facility] 340-01 : [birth year] UNIT #: [id number] AGE: [address]: America Grimes MD SEX: M ORDER DR: JOB #: [id number] MEDICAL IMAGING REPORT Page 1 of 1 COPY
--- NOTE | ~2017-02-04 | XA166 ---
[facility] A Service of [facility] RADIOLOGY TEXT RESULTS PATIENT: GOLD WELLS LOCATION: C3A 340- : [birth year] UNIT #: [id number] AGE: [address]: America Grimes MD SEX: M ORDER DR: [id number] [facility] [address] [facility]. [place], [place] [address] [id number] MR#: [id number] Acc #: [id number] NAME: GOLD WELLS : 1965 SEX: M STUDY DATE/TIME: 02/09/2017 14:53 UNIT: C3A PCU ROOM: 340 STUDY DESCRIPTION: XA PICC Line Placement WO Port Attending Physician: America Grimes M.D. Ordering Physician: America Grimes M.D. Primary Care Physician: Jennifer Cohn M.D. MEDICAL IMAGING REPORT This report is preliminary unless electronic signature is present EXAM Right-sided PICC line placement INDICATION Need for IV access for a patient with bacteremia and left foot access. PRE-PROCEDURE The procedure was explained to the patient and/or patient merchandising representative including risks, benefits, potential complications and potential for alternative forms of treatment. Informed consent was obtained, and prior to initiating the procedure a formal timeout procedure was performed. PROCEDURE Using full standard sterile barrier technique, including caps, gowns, gloves, masks, as well as sterile skin preparation and standard sterile draping, the right arm was prepped and draped in the usual fashion, and real-time sterile ultrasound guidance was used to localize an arm vein and to confirm vessel patency. A hard copy ultrasound image was recorded. After local anesthesia with 1% Xylocaine, the vein was punctured using real-time sterile ultrasound guidance, and an 0.018 guidewire was advanced into the superior vena cava, using fluoroscopic guidance. A 4 [place] single-lumen PICC was then measured and deployed with the tip positioned in the superior vena cava. The position of the line was documented with a radiographic image. The line was secured in place with an adhesive dressing and an antibiotic patch was applied. Total fluoro time was 0.1 minutes. AK was 2 mGy. IMPRESSION Successful placement of a 4 [place] single-lumen PowerPICC via the right arm under ultrasound and fluoroscopic guidance. The tip of the PICC is in good position in the superior vena cava. [facility] A Service of [facility] RADIOLOGY TEXT RESULTS PATIENT: GOLD WELLS LOCATION: [facility] 340-01 : [birth year] UNIT #: [id number] AGE: [address]: America Grimes MD SEX: M ORDER DR: Dictated by... Ana Dotson M.D. THIS IS AN ELECTRONICALLY VERIFIED REPORT Ana Dotson M.D. at 02/12/2017 4:48 PM RAFFY/viral TD: 02/12/2017 08:36 JOB #: [id number] MEDICAL IMAGING REPORT Page 1 of 1 COPY
--- NOTE | ~2017-02-04 | A ---
[facility] Nutrition Therapy DATE: 02/05/17 Patient: GOLD WELLS Physician: KESHAWN Address: [address] [facility] Room/Bed: [address], Zip: [place] [address] Admit Date: 02/04/17 Date of : [birth year] Height: 5 9 Weight: 222 101 NUTRITIONAL ASSESSMENT: REASON: Seen due to Dx + 1 point malnutrition risk score re: pressure ulcer Admitting Dx: Sepsis, weakness/lethargy, DKA PMH: T2DM, neuropathy, HTN, HLD, MRSA, cellulitis Anthropometrics: Ht: 69", Wt: 101 kg (222 lbs), BMI: 32 (Stage I obese) Labs: Na 134, Glucose 254, POC 165-286, BUN 29, A1C 12.7 (12/02/16; new A1C pending), Phos 1.9 (02/04), K+ WNL Meds: Insulin drip, MgSO4, KCL, NACL, K-Phos, Zofran prn I/O & Bowel function: LBM 02/04 Skin Integrity: Hx L calcaneal fracture with osteomyelitis (NOT pressure ulcer) Assessment: Chart reviewed, events noted. See reason for assessment, admitting dx and PMH as stated above. CXR showed no acute finding, patient is on 2L nasal cannula, had stopped taking diabetes meds and had decreased PO intake prior to arrival due to lethargy. RD previously provided diabetic diet education on 12/02/16, patient was D/C on 12/05 on IV Abx due to osteomyelitis (does NOT have pressure ulcer). Although the patient has a low potassium diet ordered nursing states he has been NPO, is on insulin drip and DKA protocol. Pt not appropriate for RD interview at this time, will follow to further determine re-education needs and PO intake. Dr. Barbour to see about L heel wound. Dx: 1) Stage I obese r/t diet/lifestyle/PMH AEB BMI 32. 2) Altered nutrition related lab values r/t non-compliance with DM medications AEB A1C 12.7 on 12/02/16, DKA diagnosis, glucose POC 165-286. Intervention: CC diet as tolerated, re-education on diet?, encourage med compliance, optimize insulin regimen Monitoring, Evaluation and Goals: 1. Tolerance of diet advancement with adequate oral intake > 50% of meals. 2. Improvement in glucose, lytes, A1C. 3. Promote wound healing. 4. Once appropriate; gradual weight loss towards a healthy BMI range. Monitor: Per protocol, criteria to determine if above goals met [facility] Nutrition Therapy DATE: 02/05/17 Patient: GOLD WELLS Physician: KESHAWN Address: [address] [place] [address] Room/Bed: [address], Zip: [place] [address] Admit Date: 02/04/17 Date of : [birth year] Height: 5 9 Weight: 222 101 Recommendations: 1. Once medically feasible advance to 60g carb diet as tolerated. If PO intake is < 50% of meals please order Glucerna shakes BID. 2. Optimize insulin regimen to promote adequate blood glucose control. Will f/u to check new A1C lab which is pending at this time. 3. Dr. Barbour to see about left heel wound/osteomyelitis. Provide wound care as needed. 4. RD previously educated on diabetic diet on 12/02/16- will f/u to further assess re-education needs. Patient needs encouragement re: diabetic medication compliance. RD will follow hospital course Moderate nutrition risk Respectfully, Marilia Hathaway RD, LD Food and Nutritional Services [facility] cc: client file
--- NOTE | ~2017-02-04 | CO ---
Unit #: [id number] #: [id number] Patient: GOLD BANG [id number] [address] [address] [id number] I MR#: [id number] NAME: GOLD BANG ROOM: 340 Age: 51 Sex: M Admission Date: 02/04/2017 : 1965 Attending Physician: America Grimes M.D. Primary Care Physician: Jennifer Cohn M.D. Consultation Date: 02/07/2017 CONSULTATION REPORT HISTORY OF PRESENT ILLNESS Mr. Bang was admitted on 02/04/2017 with complaints of weakness and hyperglycemia. The patient is a 51-year-old male with poorly controlled insulin dependent diabetes who sustained a calcaneal fracture 10 weeks ago from minor trauma. He was treated in my office with nonoperative treatment. He was placed in a CamWalker boot and developed a posterior heel ulceration from the boot. He underwent amniotic graft of this lesion about a week ago and had a dressing on his foot. He has been on limited weightbearing since that time. The patient then presented with a fever and high blood sugar and was admitted with sepsis. Blood cultures subsequently grew methicillin resistant Staphylococcus aureus. Although the patient's medical record states numerous times he has a history of calcaneal osteomyelitis, this has not been proven and this documentation is not valid as of this dictation. The patient has a neuropathic foot with a neuropathic posterior heel ulcer, but no proven osteomyelitis. The patient does not have exposed bone. The source of his sepsis is currently unknown. PAST MEDICAL HISTORY Remarkable for type 2 diabetes, neuropathy, hypertension, hyperlipidemia, and peripheral vascular disease. The patient has been admitted in the past with neutropenic fever and uncontrolled diabetes associated with methicillin resistant Staphylococcus aureus back in 2008. HOME MEDICATIONS 1. Insulin. 2. Lexapro. 3. Simvastatin. 4. Lisinopril. 5. Lasix. 6. Lyrica. PAST SURGICAL HISTORY Not listed, although the patient does have a history of MRSA of his leg, which was treated five years ago with incision and drainage of abscess. PHYSICAL EXAMINATION GENERAL: This is a middle aged male who appears older than his stated age. VITAL SIGNS: His temperature is 98.9, blood pressure 138/82, respirations 16, and pulse 87. EXTREMITIES: Evaluation of the left leg demonstrates mild swelling, but no erythema. The foot is minimally swollen. He has a 5 cm diameter neuropathic ulceration on the posterior aspect of the heel. There is no exposed bone. I did not appreciate any lymphangitis. The patient has no Unit #: [id number] #: [id number] Patient: GOLD BANG. Sensation is decreased at the mid tibia. There is no fluctuance. There is no purulent drainage. DIAGNOSTIC STUDIES LABORATORY: Hemoglobin is 10.4, hematocrit 32.1, and white blood cell count 23,100 with 88% polys. Hemoglobin A1c is 14.1. C reactive protein 26.3. IMAGING: Repeat x-rays of the left foot show a calcaneal fracture with superior displacement of the tuberosity fragment as well as early incongruency of the ankle joint consistent with possible developing Charcot ankle. IMPRESSION 1. MRSA sepsis of unknown source with past history of MRSA sepsis within the past 10 years. 2. Left calcaneal fracture. 3. Left posterior neuropathic heel ulcer. 4. Peripheral vascular disease. 5. Poorly controlled diabetes with hemoglobin A1c 14.1. PLAN 1. Arterial Dopplers. 2. Await MRI report, which was performed yesterday. My current interpretation of his MRI shows no definitive osteomyelitis. 3. The patient is at high risk for rqtki-zke-ihqy amputation given his posterior heel wound, calcified vessels, and probable underlying peripheral vascular disease. Dictated by.Navdeep Lopez/espinoza TD: 02/07/2017 09:09 JOB #: [id number] CONSULTATION REPORT Page 1 of 1 X Iraida Barbour MD X CONSULTATION REPORT
[~2017-02-04 11:36] MED LIST changes: +ACETAMINOPHEN325 MG PO; +CENTRUM SILVER PO; +HCTZ PO; +LANTUS100 U/ML SUBQ; +LYRICA PO; +ROCEPHIN2 G/VIAL INJ; +SIMVASTATIN20 MG PO; +TRADJENTA5 MG PO
[2017-02-04 12:35] LABS: URINE SOURCE CLEAN CATCH
[2017-02-04 12:42] LABS: URINE APPEARANCE CLEAR; URINE BILIRUBIN NEG (NEG); URINE BLOOD TRACE (NEG); URINE COLOR YELLOW; URINE GLUCOSE >1000 MG/DL (NEG); URINE KETONE TRACE (NEG); URINE LEUKOCYTE ESTERASE NEG (NEG); URINE NITRATE NEG (NEG); URINE PH 5.5 (5-8); URINE PROTEIN NEG (NEG); URINE SPECIFIC GRAVITY 1.028 (1.003-1.035); URINE UROBILINOGEN 0.2 MG/DL (NEG)
[2017-02-04 12:46] LABS: URINE BACTERIA AUWI NEG (NEGATIVE); URINE SQUAMOUS EPITHELIAL CELL NONE SEEN /[HPF]; UWBCS1 AUWI 0-2 (0-5)
[2017-02-04 13:03] LABS: CULTURE INDICATED? NO
[2017-02-04 13:15] LABS: BASOPHIL# 0.1 X10e3 (0-0.3); BASOPHIL% 0.5 % (0-2.5); EOSINOPHIL% 0.1 % (0.0-7.0); HEMATOCRIT 42.9 % (38.0-50.0); HEMOGLOBIN 12.7 gm/dL (13.0-16.0); LYMPHOCYTE# 0.5 X10e3 (1.0-3.5); LYMPHOCYTE% 2.8 % (17.0-45.0); MEAN CELL VOLUME 90.9 FL (83-96); MEAN CORPUSCULAR HGB CONC 29.7 g/dL (30-36); MEAN PLATELET VOLUME 8.9 FL (6.5-11.5); MONOCYTE# 1.4 X10e3 (0-1.0); MONOCYTE% 8.3 % (3.0-12.0); NEUTROPHIL# 14.5 X10e3 (1.5-7.1); NEUTROPHIL% 88.3 % (40-75); PLATELET COUNT 361 X10e3 (140-420); RED BLOOD COUNT 4.72 X10e (3.90-5.60); RED CELL DISTRIBUTION WIDTH 15.3 % (11.0-15.5); WHITE BLOOD COUNT 16.4 X10e3 (4.0-10.5)
[2017-02-04 13:18] LABS: DIFF IND YES
[2017-02-04 13:25] LABS: PLATELET ESTIMATE NORMAL (NORMAL)
[2017-02-04 13:26] LABS: RBC NORMAL YES
[2017-02-04 13:39] LABS: ALBUMIN SERUM 2.2 g/dL (3.5-5.0); BETA HYDROXYBUTYRATE 2.1 MMOL/L (0.02-0.27); BILIRUBIN, DIRECT 0.1 mg/dL (0.0-0.2); BILIRUBIN,INDIRECT 0.4 mg/dL (0.0-0.9); BILIRUBIN,TOTAL 0.5 mg/dL (0.2-2.0); BUN/CREATININE RATIO 47.27; CALCIUM SERUM 8.3 mg/dL (8.4-10.2); CREATININE SERUM 1.1 mg/dL (0.6-1.4); GLOM FILT RATE Estimated 78.4 mL/min (>60); PROTEIN TOTAL SERUM 5.9 g/dL (6.0-8.3)
[2017-02-04 14:02] LABS: POTASSIUM 5.6 mmol/L (3.5-5.1)
[2017-02-04 15:46] LABS: BUN/CREATININE RATIO 44.54; CALCIUM SERUM 8.5 mg/dL (8.4-10.2); CREATININE SERUM 1.1 mg/dL (0.6-1.4); GLOM FILT RATE Estimated 78.4 mL/min (>60); POTASSIUM 4.7 mmol/L (3.5-5.1)
[2017-02-04 16:45] LABS: ARTERIAL BLD GAS O2 SATURATION 91.4 % (90.0-100.0); ARTERIAL BLOOD GAS CARBOXY HB 0.8 %sat (0.0-9.0); ARTERIAL BLOOD GAS HCO3 20.1 mmol/L; ARTERIAL BLOOD GAS MET HB 0.7 %sat (0.0-2.0); ARTERIAL BLOOD GAS PCO2 35.3 mmHg (35.0-45.0); ARTERIAL BLOOD GAS pH 7.363 (7.350-7.450)
[2017-02-04 16:46] LABS: ARTERIAL BLOOD GAS ALLEN TEST NORMAL; ARTERIAL BLOOD GAS ART SITE RIGHT RADIAL; ARTERIAL BLOOD GAS PO2 65.7 mmHg (80.0-100); ARTERIAL DRAW? YES
[2017-02-04] MEDS ORDERED: BASAGLAR K100 UNIT/1 SUBQ (17:51)
[2017-02-04] MEDS ORDERED: LISINOPRIL10 MG PO (17:53)
[2017-02-04] MEDS ORDERED: ESCITALOPRAM OX20 MG PO (17:53)
[2017-02-04] MEDS ORDERED: SIMVASTATIN20 MG PO (17:53)
[2017-02-04] MEDS ORDERED: LASIX20 MG PO (17:54)
[2017-02-04] MEDS ORDERED: LYRICA PO (17:54)
[2017-02-04] MEDS ORDERED: PATIENT'S PHARMACY (17:56)
[2017-02-04 21:44] LABS: CREATININE SERUM 0.7 mg/dL (0.6-1.4); GLOM FILT RATE Estimated 110.9 mL/min (>60)
[2017-02-04 21:47] LABS: CALCIUM SERUM 6.2 mg/dL (8.4-10.2)
[2017-02-05 03:48] LABS: BASOPHIL# 0.1 X10e3 (0-0.3); BASOPHIL% 0.7 % (0-2.5); EOSINOPHIL# 0.1 X10e3 (0-0.7); EOSINOPHIL% 0.6 % (0.0-7.0); HEMATOCRIT 34.9 % (38.0-50.0); HEMOGLOBIN 11.4 gm/dL (13.0-16.0); LYMPHOCYTE% 5.2 % (17.0-45.0); MEAN CELL VOLUME 82.8 FL (83-96); MEAN CORPUSCULAR HGB CONC 32.6 g/dL (30-36); MEAN PLATELET VOLUME 8.1 FL (6.5-11.5); MONOCYTE# 1.6 X10e3 (0-1.0); MONOCYTE% 8.5 % (3.0-12.0); PLATELET COUNT 369 X10e3 (140-420); RED BLOOD COUNT 4.22 X10e (3.90-5.60); RED CELL DISTRIBUTION WIDTH 14.9 % (11.0-15.5); WHITE BLOOD COUNT 18.9 X10e3 (4.0-10.5)
[2017-02-05 03:49] LABS: DIFF IND NO
[2017-02-05 04:17] LABS: BUN/CREATININE RATIO 41.42; CALCIUM SERUM 8.1 mg/dL (8.4-10.2); CREATININE SERUM 0.7 mg/dL (0.6-1.4); GLOM FILT RATE Estimated 110.9 mL/min (>60); POTASSIUM 4.5 mmol/L (3.5-5.1)
[2017-02-05 07:25] LABS: INFLUENZA A NEG (NEG); INFLUENZA B NEG (NEG)
[2017-02-05 10:34] LABS: BUN/CREATININE RATIO 31.42; CALCIUM SERUM 8.2 mg/dL (8.4-10.2); CREATININE SERUM 0.7 mg/dL (0.6-1.4); GLOM FILT RATE Estimated 110.9 mL/min (>60); PHOSPHOROUS 1.9 mg/dL (2.5-4.6); POTASSIUM 3.8 mmol/L (3.5-5.1)
[2017-02-05 15:08] LABS: CALCIUM SERUM 7.9 mg/dL (8.4-10.2); CREATININE SERUM 0.6 mg/dL (0.6-1.4); GLOM FILT RATE Estimated 118.1 mL/min (>60); POTASSIUM 3.8 mmol/L (3.5-5.1)
[2017-02-06 05:30] LABS: BASOPHIL% 0.1 % (0-2.5); EOSINOPHIL# 0.1 X10e3 (0-0.7); EOSINOPHIL% 0.3 % (0.0-7.0); HEMATOCRIT 33.4 % (38.0-50.0); HEMOGLOBIN 10.7 gm/dL (13.0-16.0); LYMPHOCYTE# 0.8 X10e3 (1.0-3.5); LYMPHOCYTE% 3.7 % (17.0-45.0); MEAN CELL VOLUME 84.2 FL (83-96); MEAN CORPUSCULAR HEMOGLOBIN 27.1 PG (28-34); MEAN CORPUSCULAR HGB CONC 32.1 g/dL (30-36); MEAN PLATELET VOLUME 9.1 FL (6.5-11.5); MONOCYTE# 1.1 X10e3 (0-1.0); MONOCYTE% 4.9 % (3.0-12.0); NEUTROPHIL# 20.6 X10e3 (1.5-7.1); PLATELET COUNT 347 X10e3 (140-420); RED BLOOD COUNT 3.97 X10e (3.90-5.60); RED CELL DISTRIBUTION WIDTH 15.2 % (11.0-15.5); WHITE BLOOD COUNT 22.6 X10e3 (4.0-10.5)
[2017-02-06 05:34] LABS: DIFF IND NO
[2017-02-06 06:13] LABS: ALBUMIN SERUM 1.3 g/dL (3.5-5.0); BILIRUBIN,TOTAL 0.6 mg/dL (0.2-2.0); BUN/CREATININE RATIO 27.14; CALCIUM SERUM 7.9 mg/dL (8.4-10.2); CREATININE SERUM 0.7 mg/dL (0.6-1.4); GLOM FILT RATE Estimated 110.9 mL/min (>60); MAGNESIUM 1.9 mg/dL (1.6-3.0); PHOSPHOROUS 2.6 mg/dL (2.5-4.6); POTASSIUM 4.4 mmol/L (3.5-5.1); PROTEIN TOTAL SERUM 4.4 g/dL (6.0-8.3)
[2017-02-07 05:00] LABS: BASOPHIL# 0.1 X10e3 (0-0.3); BASOPHIL% 0.6 % (0-2.5); DIFF IND NO; EOSINOPHIL% 0.1 % (0.0-7.0); HEMATOCRIT 32.1 % (38.0-50.0); HEMOGLOBIN 10.4 gm/dL (13.0-16.0); LYMPHOCYTE% 4.3 % (17.0-45.0); MEAN CELL VOLUME 82.5 FL (83-96); MEAN CORPUSCULAR HEMOGLOBIN 26.8 PG (28-34); MEAN CORPUSCULAR HGB CONC 32.5 g/dL (30-36); MEAN PLATELET VOLUME 8.5 FL (6.5-11.5); MONOCYTE# 1.6 X10e3 (0-1.0); MONOCYTE% 6.9 % (3.0-12.0); NEUTROPHIL# 20.3 X10e3 (1.5-7.1); NEUTROPHIL% 88.1 % (40-75); PLATELET COUNT 417 X10e3 (140-420); RED BLOOD COUNT 3.89 X10e (3.90-5.60); WHITE BLOOD COUNT 23.1 X10e3 (4.0-10.5)
[2017-02-07 05:46] LABS: ALBUMIN SERUM 1.4 g/dL (3.5-5.0); BILIRUBIN,TOTAL 0.6 mg/dL (0.2-2.0); CALCIUM SERUM 7.9 mg/dL (8.4-10.2); CREATININE SERUM 0.5 mg/dL (0.6-1.4); GLOM FILT RATE Estimated 127.3 mL/min (>60); PHOSPHOROUS 2.2 mg/dL (2.5-4.6); POTASSIUM 4.4 mmol/L (3.5-5.1); PROTEIN TOTAL SERUM 4.8 g/dL (6.0-8.3)
[2017-02-07 16:46] LABS: OSMOLALITY,URINE 547 mOsmo/kg (250-900)
[2017-02-07 17:23] LABS: SODIUM URINE RANDOM <10 mmol/L
[2017-02-08 07:40] LABS: HEMATOCRIT 30.1 % (38.0-50.0); HEMOGLOBIN 9.9 gm/dL (13.0-16.0); MEAN CELL VOLUME 82.1 FL (83-96); MEAN CORPUSCULAR HEMOGLOBIN 27.1 PG (28-34); MEAN PLATELET VOLUME 8.5 FL (6.5-11.5); RED BLOOD COUNT 3.66 X10e (3.90-5.60); RED CELL DISTRIBUTION WIDTH 15.1 % (11.0-15.5); WHITE BLOOD COUNT 19.8 X10e3 (4.0-10.5)
[2017-02-08 08:13] LABS: THYROID STIMULATING HORMONE 4.99 uIU/ml (0.34-5.60)
[2017-02-08 08:18] LABS: ALBUMIN SERUM 1.4 g/dL (3.5-5.0); BILIRUBIN,TOTAL 0.7 mg/dL (0.2-2.0); BUN/CREATININE RATIO 21.42; CALCIUM SERUM 7.9 mg/dL (8.4-10.2); CREATININE SERUM 0.7 mg/dL (0.6-1.4); GLOM FILT RATE Estimated 110.9 mL/min (>60); POTASSIUM 3.4 mmol/L (3.5-5.1); PROTEIN TOTAL SERUM 5.4 g/dL (6.0-8.3)
[2017-02-09 08:16] LABS: HEMATOCRIT 28.9 % (38.0-50.0); HEMOGLOBIN 9.3 gm/dL (13.0-16.0); MEAN CORPUSCULAR HGB CONC 32.2 g/dL (30-36); RED BLOOD COUNT 3.44 X10e (3.90-5.60); RED CELL DISTRIBUTION WIDTH 15.1 % (11.0-15.5); WHITE BLOOD COUNT 18.4 X10e3 (4.0-10.5)
[2017-02-09 08:49] LABS: BUN/CREATININE RATIO 21.42; CALCIUM SERUM 7.6 mg/dL (8.4-10.2); CREATININE SERUM 0.7 mg/dL (0.6-1.4); GLOM FILT RATE Estimated 110.9 mL/min (>60); MAGNESIUM 2.1 mg/dL (1.6-3.0); PHOSPHOROUS 3.2 mg/dL (2.5-4.6); POTASSIUM 4.5 mmol/L (3.5-5.1); URIC ACID 3.5 mg/dL (2.6-7.2)
[2017-02-10 09:55] LABS: HEMATOCRIT 26.5 % (38.0-50.0); HEMOGLOBIN 8.6 gm/dL (13.0-16.0); MEAN CELL VOLUME 82.7 FL (83-96); MEAN CORPUSCULAR HEMOGLOBIN 26.8 PG (28-34); MEAN CORPUSCULAR HGB CONC 32.4 g/dL (30-36); MEAN PLATELET VOLUME 8.1 FL (6.5-11.5); RED BLOOD COUNT 3.21 X10e (3.90-5.60); RED CELL DISTRIBUTION WIDTH 15.3 % (11.0-15.5); WHITE BLOOD COUNT 15.6 X10e3 (4.0-10.5)
[2017-02-10 09:59] LABS: MAGNESIUM 2.3 mg/dL (1.6-3.0); PHOSPHOROUS 2.8 mg/dL (2.5-4.6)
[2017-02-10 10:08] LABS: ALBUMIN SERUM 1.4 g/dL (3.5-5.0); BILIRUBIN,TOTAL 0.3 mg/dL (0.2-2.0); BUN/CREATININE RATIO 21.42; CALCIUM SERUM 7.4 mg/dL (8.4-10.2); CREATININE SERUM 0.7 mg/dL (0.6-1.4); GLOM FILT RATE Estimated 110.9 mL/min (>60); POTASSIUM 4.1 mmol/L (3.5-5.1); PROTEIN TOTAL SERUM 5.9 g/dL (6.0-8.3)
[2017-02-11 05:49] LABS: HEMATOCRIT 25.6 % (38.0-50.0); HEMOGLOBIN 8.4 gm/dL (13.0-16.0); MEAN CELL VOLUME 82.1 FL (83-96); MEAN CORPUSCULAR HEMOGLOBIN 26.9 PG (28-34); MEAN CORPUSCULAR HGB CONC 32.8 g/dL (30-36); MEAN PLATELET VOLUME 7.8 FL (6.5-11.5); RED BLOOD COUNT 3.12 X10e (3.90-5.60); RED CELL DISTRIBUTION WIDTH 15.2 % (11.0-15.5); WHITE BLOOD COUNT 14.9 X10e3 (4.0-10.5)
[2017-02-11 06:42] LABS: BUN/CREATININE RATIO 21.66; CALCIUM SERUM 7.4 mg/dL (8.4-10.2); CREATININE SERUM 0.6 mg/dL (0.6-1.4); GLOM FILT RATE Estimated 118.1 mL/min (>60); MAGNESIUM 2.3 mg/dL (1.6-3.0)
[2017-02-11 13:48] LABS: URINE APPEARANCE CLOUDY; URINE BILIRUBIN NEG (NEG); URINE BLOOD 2+ (NEG); URINE COLOR YELLOW; URINE GLUCOSE NEG (NEG); URINE KETONE NEG (NEG); URINE LEUKOCYTE ESTERASE NEG (NEG); URINE NITRATE NEG (NEG); URINE PH 5.5 (5-8); URINE PROTEIN TRACE (NEG); URINE SPECIFIC GRAVITY 1.014 (1.003-1.035)
[2017-02-11 13:50] LABS: URINE SQUAMOUS EPITHELIAL CELL OCC /[HPF]
[2017-02-11 14:07] LABS: U HYALINE CASTS AUWI 0-2 /[LPF]
[2017-02-11 14:08] LABS: URINE AMORPHOUS SEDIMENT AMORP URATES; URINE BACTERIA AUWI 2+ (NEGATIVE)
[2017-02-12 07:38] LABS: HEMATOCRIT 26.4 % (38.0-50.0); HEMOGLOBIN 8.4 gm/dL (13.0-16.0); MEAN CELL VOLUME 83.1 FL (83-96); MEAN CORPUSCULAR HEMOGLOBIN 26.6 PG (28-34); MEAN PLATELET VOLUME 7.8 FL (6.5-11.5); RED BLOOD COUNT 3.17 X10e (3.90-5.60); RED CELL DISTRIBUTION WIDTH 15.5 % (11.0-15.5); WHITE BLOOD COUNT 13.9 X10e3 (4.0-10.5)
[2017-02-12 08:11] LABS: CALCIUM SERUM 7.4 mg/dL (8.4-10.2); CREATININE SERUM 0.6 mg/dL (0.6-1.4); GLOM FILT RATE Estimated 118.1 mL/min (>60); MAGNESIUM 1.9 mg/dL (1.6-3.0); POTASSIUM 4.7 mmol/L (3.5-5.1)
[2017-02-13 06:27] LABS: HEMATOCRIT 25.4 % (38.0-50.0); HEMOGLOBIN 8.3 gm/dL (13.0-16.0); MEAN CELL VOLUME 83.3 FL (83-96); MEAN CORPUSCULAR HEMOGLOBIN 27.1 PG (28-34); MEAN CORPUSCULAR HGB CONC 32.6 g/dL (30-36); MEAN PLATELET VOLUME 7.4 FL (6.5-11.5); RED BLOOD COUNT 3.04 X10e (3.90-5.60); RED CELL DISTRIBUTION WIDTH 15.1 % (11.0-15.5); WHITE BLOOD COUNT 11.9 X10e3 (4.0-10.5)
[2017-02-13 07:30] LABS: CALCIUM SERUM 7.4 mg/dL (8.4-10.2); CREATININE SERUM 0.5 mg/dL (0.6-1.4); GLOM FILT RATE Estimated 127.3 mL/min (>60); MAGNESIUM 2.2 mg/dL (1.6-3.0); POTASSIUM 4.8 mmol/L (3.5-5.1)
[2017-02-14 05:46] LABS: HEMATOCRIT 25.4 % (38.0-50.0); HEMOGLOBIN 8.2 gm/dL (13.0-16.0); MEAN CORPUSCULAR HGB CONC 32.5 g/dL (30-36); RED BLOOD COUNT 3.06 X10e (3.90-5.60); RED CELL DISTRIBUTION WIDTH 14.9 % (11.0-15.5); WHITE BLOOD COUNT 13.3 X10e3 (4.0-10.5)
[2017-02-14 06:50] LABS: BUN/CREATININE RATIO 18.33; CALCIUM SERUM 7.6 mg/dL (8.4-10.2); CREATININE SERUM 0.6 mg/dL (0.6-1.4); GLOM FILT RATE Estimated 118.1 mL/min (>60); POTASSIUM 4.9 mmol/L (3.5-5.1)
[2017-03-15] MEDS ORDERED: PERCOCET 7.5-31 EACH PO (15:32)
[2017-03-15] MEDS ORDERED: ELIQUIS5 MG PO (15:42)
[2017-03-15] MEDS ORDERED: COATED ASPIRIN325 M1 PO (15:44)
[2017-03-15] MEDS ORDERED: MAG-OXIDE400 MG PO (15:45)
[2017-03-15] MEDS ORDERED: FLOMAX0.4 M1 (15:45)
== END 2017-02-14 22:47 | DRG 853 ==
LOC: CED 11:36 → C3A PCU 14:15 → CEDOF 14:15 → CED 14:26 → CICCU2 14:26 → CEDOF 21:38 → CICCU2 02-06 09:35 → C3A PCU 02-06 23:46
PROVIDERS: Emergency Medicine; Internal Medicine; Internal Medicine Nephrology; Nurse Practitioner Family; Orthopaedic Surgery
PROC: B24BZZZ Ultrasonography of Heart with Aorta (ICD-10-PCS; 2017-02-06)
PROC: 0Y6J0Z3 Detachment at Left Lower Leg, Low, Open Approach (ICD-10-PCS; principal; 2017-02-08 12:30)
PROC: 02HV33Z Insertion of Infusion Device into Superior Vena Cava, Percutaneous Approach (ICD-10-PCS; 2017-02-09)
PROC: B548ZZA Ultrasonography of Superior Vena Cava, Guidance (ICD-10-PCS; 2017-02-09)
DX: A41.02 Sepsis due to Methicillin resistant Staphylococcus aureus (principal); E43 Unspecified severe protein-calorie malnutrition; E13.10 Other specified diabetes mellitus with ketoacidosis without coma; N17.9 Acute kidney failure, unspecified; L02.416 Cutaneous abscess of left lower limb; E87.1 Hypo-osmolality and hyponatremia; E83.39 Other disorders of phosphorus metabolism; E83.51 Hypocalcemia; E86.0 Dehydration; M86.9 Osteomyelitis, unspecified; N39.0 Urinary tract infection, site not specified; Z68.32 Body mass index [BMI] 32.0-32.9, adult; Z79.4 Long term (current) use of insulin; E78.5 Hyperlipidemia, unspecified; I10 Essential (primary) hypertension; E87.6 Hypokalemia; D50.9 Iron deficiency anemia, unspecified; E87.70 Fluid overload, unspecified; M79.89 Other specified soft tissue disorders; S92.002G Unspecified fracture of left calcaneus, subsequent encounter for fracture with delayed healing; X58.XXXD Exposure to other specified factors, subsequent encounter; Z86.14 Personal history of Methicillin resistant Staphylococcus aureus infection; I73.9 Peripheral vascular disease, unspecified; G47.33 Obstructive sleep apnea (adult) (pediatric); K59.00 Constipation, unspecified; K21.9 Gastro-esophageal reflux disease without esophagitis; Z83.3 Family history of diabetes mellitus; Z82.49 Family history of ischemic heart disease and other diseases of the circulatory system; E87.5 Hyperkalemia
CPT/HCPCS: 36600; 71010; 73030; 73630; 73720; 76937; 77001; 80048; 80053; 80076; 80202; 81003; 82010; 82150; 82308; 82533; 82803; 82947; 83036; 83605; 83690; 83735; 83935; 84100; 84300; 84443; 84550; 85025; 85027; 85652; 86140; 86850; 86900; 86901; 86923; 87040; 87070; 87075; 87077; 87086; 87186; 87205; 87804; 88307; 88311; 93005; 93306; 93922; 94760; 96361; 96374; 97110; 97163; 97164; 97530; 99291; A9577; C1751; J1650; J1815; J1940; J2250; J2270; J2405; J2543; J3010; J3370; J3475

== ENCOUNTER 2017-02-16 03:16 | Inpatient (IN) | payer OTHER ==
--- NOTE | ~2017-02-16 | A ---
[facility] Nutrition Therapy DATE: 02/17/17 Patient: GOLD WELLS Physician: GINNYV Address: [address] [facility] Room/Bed: [address] [place] [address], Zip: [place] [address] Admit Date: 02/16/17 Date of : [birth year] Height: 5 9 Weight: 275 125 NUTRITIONAL ASSESSMENT: REASON: CONSULT TO SEE THE PT WITH POOR NUTRITION NOTED IN CHART 51 yo male admitted for swelling to BL arms and right leg PMH: DM, neuropathy, HTN, MRSA, cellulitis, recent left BKA Anthropometrics: Ht: 69" Wt: 114.7 kg BMI: 37.3 (stage II obesity) Labs: Na+ 133 Cl- 97 Gluc 219 Ca++ 7.9 Alb 1.1 Accuchecks 242-252 Meds: Lipitor, levemir, bumex, colace, protonix, novolog, ferrous gluconate I/O & Bowel function: 250/1540, last BM 02/16 Skin Integrity: Left BKA (recent last admission) purple blister right foot Bruise LLE/ BUE/ abdomen Blister left inner thigh Edema: trace- scrotum/ RUE Diet: Consistent carbohydrate Assessment: Chart reviewed, events noted. Pt was recently seen by RDs at [facility] during a previous admission on 02/09. Pt has been educated on DM diet multiple times per (including on 02/09). Pt reports having a good appetite, and consuming 75-100% of meals since admission. Pt denies recent weight loss. RD enocuraged diet compliance, including heart healthy diet strategies and consuming protein with each meal. Pt agreed. Pt reports that he has been unable to order eggs, and that the call center told him he has an egg allergy entered in [employer] Pt reports that he does not have an egg allergy. RD informed RN of this. Pt encouraged to contact RD with any further nutritional needs. Dx: Stage II obesity RT lifestyle/ diet AEB BMI 37.3 2) Impaired glycemic control RT likely poor compliance AEB accuchecks 242-252. Intervention: 1. Add heart healthy to diet Monitoring, Evaluation and Goals: 1. Weight; promote gradual weight loss towards a healthy BMI range [facility] Nutrition Therapy DATE: 02/17/17 Patient: GOLD WELLS Physician: KAPIL Address: [address] [place] [address] Room/Bed: [address] [place] [address], Zip: [place] [address] Admit Date: 02/16/17 Date of : [birth year] Height: 5 9 Weight: 275 125 Recommendations: 1. Add heart healthy diet restriction due to edema, swelling and h/o HTN. Continue CCD with fluid restriction per MD. 2. Contact RD for any further diet education needs. Pt is at mild nutritional risk. Respectfully, EMILY ALVAREZ RD, LD Food and Nutritional Services [facility] cc: client file
--- NOTE | ~2017-02-16 | DS ---
Unit #: [id number] #: [id number] Patient: GOLD WELLS [address] [place] [address] [id number] I MR#: [id number] NAME: GOLD WELLS ROOM: [facility] Age: 51 Sex: M Admission Date: 02/16/2017 : 1965 Discharge Date: Attending Physician: America Grimes M.D. Primary Care Physician: Jennifer Cohn M.D. DISCHARGE SUMMARY DISCHARGE DIAGNOSES 1. Acute diastolic heart failure with fluid overload and scrotal swelling. 2. Severe protein malnutrition. 3. Diabetes mellitus type 2, uncontrolled. 4. Bilateral groin fungal infection. 5. Urinary retention secondary to scrotal swelling; currently having Phillips catheter. Needs to be discontinued once scrotal swelling is better. 6. Hypertension. 7. Anemia, chronic iron deficiency. 8. Right leg wound. 9. Obesity. 10. Hyperphosphatemia. 11. 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 12. History of sepsis with methicillin-resistant Staphylococcus aureus. 13. Diabetic neuropathy. 14. Calcaneal fracture. CONSULTATIONS 1. Dr. Barbour. 2. Dr. Doll. PROCEDURES None. DIAGNOSTIC TESTING LAB DATA: WBC 8.8, hemoglobin 7.9, platelets 545. Sodium 132, potassium 5, creatinine 1.1, calcium 8. Urine culture is negative. Blood culture is negative. Ankle wound negative. Phosphorous 3.7, magnesium 1.9, albumin 1.2. CARDIOVASCULAR: Echocardiogram shows ejection fraction 50% to 55%. ALLERGIES Eggs. DISCHARGE MEDICATIONS 1. Flomax 0.4 mg p.o. daily. 2. Magnesium oxide 400 p.o. t.i.d. 3. Lyrica 150 p.o. t.i.d. 4. Lexapro 20 daily. Unit #: [id number] #: [id number] Patient: GOLD WELLS 5. Nystatin applied topically t.i.d. 6. Coreg 3.125 p.o. b.i.d. 7. Colace 100 p.o. b.i.d. 8. Lasix 40 p.o. daily. 9. Simvastatin 20 daily. 10. Levemir 20 units subcu b.i.d. 11. NovoLog low-dose sliding scale before meals and bedtime. 12. NovoLog 8 units subcu t.i.d. with meals. 13. Ferrous gluconate 324 p.o. b.i.d. 14. Percocet 5 mg q.4 p.r.n. pain. HOSPITALIZATION COURSE A 51 year old admitted because of scrotal swelling and leg swelling. Acute diastolic heart failure. Also, swelling could be secondary to severe protein malnutrition. Patient received IV Bumex. Renal was closely following. Currently he is on p.o. Lasix. His scrotal swelling and leg swelling got better and (1) physical therapy. Bilateral groin fungal infection secondary to urinary incontinence from scrotal swelling. Patient received nystatin and Diflucan. Continue with nystatin. Keep Phillips catheter until scrotal swelling gets better. After that, discontinue Phillips catheter. Diabetes mellitus type 2. Patient seen by Dr. Doll. Insulin has been adjusted. Currently sugars are better. Severe protein malnutrition. Continue with high protein diet as per unit secy's recommendation. Recent MRSA left calcaneal bone osteomyelitis and abscess, also with fracture, status post below knee amputation. Patient completed his IV vancomycin course. Patient seen by orthopedics. Okay to discharge patient. Follow with orthopedics in 1 week's time. DISCHARGE PLAN 1. The patient will be discharged to rehab. 2. Discontinue PICC line. 3. Discontinue Phillips catheter once scrotal swelling is better. 4. Patient to follow Dr. Barbour in 1 week's time. NOTE: Discharge time taken is 40 minutes. Dictated by... Navdeep Serrano TD: 02/21/2017 11:19 JOB #: [id number] Unit #: [id number] #: [id number] Patient: GOLD WELLS DISCHARGE SUMMARY Page 1 of 1 X America Grimes MD DISCHARGE SUMMARY
--- NOTE | ~2017-02-16 | CR72 ---
[facility] A Service of [facility] & [facility] RADIOLOGY TEXT RESULTS PATIENT: GOLD WELLS LOCATION: [facility] : [birth year] UNIT #: [id number] AGE: [address]: Umm Lopez MD SEX: M ORDER DR: [id number] [facility] [address] [facility]. [place], [place] [address] [id number] MR#: [id number] Acc #: [id number] NAME: GOLD WELLS : 1965 SEX: M STUDY DATE/TIME: 02/16/2017 4:05 UNIT: [facility] ROOM: STUDY DESCRIPTION: CR Chest Single View Portable Attending Physician: Umm Lopez M.D. Ordering Physician: Umm Lopez M.D. Primary Care Physician: Jennifer Cohn M.D. MEDICAL IMAGING REPORT This report is preliminary unless electronic signature is present EXAM Single view chest INDICATION Chest pressure. Generalized edema. Swelling in the arms and legs. FINDINGS Single portable AP view of the chest compared to 02/04/2017. There is a right PICC terminating over the SVC. Heart and mediastinal contours are unchanged. There is increased interstitial opacities in both lungs. There is a small right pleural effusion. No pneumothorax. IMPRESSION 1. Development of mild interstitial edema and a small right pleural effusion. 2. Right PICC terminates over the SVC. Dictated by... Kike Martínez M.D. THIS IS AN ELECTRONICALLY VERIFIED REPORT Kike Martínez M.D. at 02/16/2017 5:15 AM DIMITRI/mario TD: 02/16/2017 04:51 JOB #: [id number] MEDICAL IMAGING REPORT Page 1 of 1 COPY
--- NOTE | ~2017-02-16 | EKG ---
PATIENT: GOLD WELLS UNIT #: [id number] Ventricular Rate: 83 BPM Atrial Rate: 83 BPM P-R Interval: 148 ms QRS Duration: 80 ms Q-T Interval: 366 ms QTC Calculation(Bezet): 430 ms P [place]: 48 degrees Calculated R [place]: 33 degrees Calculated T [place]: 77 degrees Diagnosis Line: Normal sinus rhythm Diagnosis Line: Septal infarct , age undetermined Diagnosis Line: Abnormal ECG Diagnosis Line: When compared with ECG of 04-FEB-2017 14:53, Diagnosis Line: ST now depressed in Anterior leads Diagnosis Line: T wave inversion now evident in Anterior leads Diagnosis Line: Confirmed by MARYAN COVINGTON MD ([id number]) on Diagnosis Line: 02/20/2017 3:11:17 PM INTERPRETING MD: NADYA KRISHNAMURTHY
--- NOTE | ~2017-02-16 | HP ---
Unit #: [id number] #: [id number] Patient: GOLD WELLS [id number] [address] [address] [id number] I MR#: [id number] NAME: GOLD WELLS ROOM: [address]00 Age: 51 Sex: M Admission Date: 02/16/2017 : 1965 Attending Physician: America Grimes M.D. Primary Care Physician: Jennifer Cohn M.D. HISTORY AND PHYSICAL CHIEF COMPLAINT Swelling. HISTORY OF PRESENT ILLNESS 51-year-old with recent history of osteomyelitis, status post left BKA, admitted because of swelling. He was recently discharged two days ago to rehab. He was sent back because of increasing swelling and also scrotal swelling. Because of scrotal swelling, he was not able to void properly and he has incontinence and his groin is red and fungal looking. No fever, no chills, no pain. No nausea, no vomiting. He is complaining of right leg swelling and right leg wound. He was mildly ambulating but did not do much at rehab, according to him. PAST MEDICAL HISTORY 1. Recent history of BKA for left calcaneal osteomyelitis with left lower leg large abscess. 2. Diabetes mellitus type 2, uncontrolled. 3. Recent history of MRSA sepsis. 4. Severe protein malnutrition. 5. History of diabetic neuropathy. 6. Hyperlipidemia. 7. Hypertension. 8. Acute on chronic iron deficiency anemia. 9. Right lower leg wound from diabetes. 10. History of DKA. ALLERGIES None. MEDICATIONS Current home medications: 1. Lyrica 150 p.o. three times daily. 2. Lexapro 20 daily. 3. Coreg 3.125 p.o. b.i.d. 4. Colace 100 b.i.d. 5. Lasix 40 daily. 6. Simvastatin 20 daily. 7. Vancomycin 2000 IV b.i.d. 8. Ferrous gluconate 324 mg p.o. b.i.d. 9. Levemir 40 units subcu b.i.d. 10. NovoLog 10 units subcu three times daily with meals. 11. NovoLog low dose sliding scale. 12. Percocet 5 mg q.4 p.r.n. pain. Unit #: [id number] #: [id number] Patient: GOLD WELLS SOCIAL HISTORY He was in rehab for a few days. Before that, he came from home. No alcohol, no smoking, no drugs. FAMILY HISTORY Positive for diabetes and hypertension. REVIEW OF SYSTEMS No headache, no visual changes, no weakness, numbness, tingling. Complaining of leg swelling. Reviewed twelve point system with him which is negative except as in HPI. PHYSICAL EXAMINATION VITAL SIGNS: Temperature 98.3, pulse 86, respirations 18, blood pressure 104/67. GENERAL: 51-year-old lying in bed, not in acute distress. Alert and oriented x3, able to provide history. HEENT: Pupils equally reactive to light and accommodation. Dry mucosa present. NECK: Supple. HEART: S1, S2 heard. Regular rhythm. LUNGS: Clear to auscultation. No crackles, no rhonchi. HEART: S1, S2 heard. Regular rhythm. EXTREMITIES: Bilateral pitting edema present. Left BKA present. Right lower leg wound present, stage 2 to 3. Severe scrotal edema present bilateral groin. Erythema and fungal dermatitis present. DIAGNOSTIC STUDIES LABORATORY DATA: BNP 270, sodium 133, potassium 4.4, creatinine 1.0. Lactic acid 1.0, WBC 13.5, hemoglobin 8.6, platelets 689. ASSESSMENT AND PLAN 1. Fluid overload with scrotal swelling, likely secondary to severe hypoalbuminemia and immobility, rule out congestive heart failure: I am going to do echocardiogram and give IV Lasix. Ask Dr. Casanova to see. 2. Severe protein malnutrition: Tape Recording Machine Operator to see. 3. Recent below knee amputation with methicillin resistant Staph aureus osteomyelitis. Continue with IV vancomycin and no sepsis. 4. Diabetes mellitus type 2, uncontrolled, with neuropathy: Continue with Lyrica and Levemir. 5. Right lower leg wound: Dr. Barbour is consulted. 6. Bilateral groin fungal dermatitis. I am going to give Diflucan and Nystatin. 7. DVT prophylaxis with Lovenox: I am going to ask PT/OT to see. Continue with current home medications. Dictated by Navdeep Serrano TD: 02/16/2017 11:47 JOB #: [id number] Unit #: [id number] #: [id number] Patient: GOLD WELLS HISTORY AND PHYSICAL Page 1 of 1 X America Grimes MD X HISTORY AND PHYSICAL
[~2017-02-16 03:16] MED LIST changes: +BASAGLAR K100 UNIT/1 SUBQ; +ESCITALOPRAM OX20 MG PO; +LASIX20 MG PO; +PATIENT'S PHARMACY
[2017-02-16] MEDS ORDERED: LEXAPRO20 MG PO (03:26)
[2017-02-16] MEDS ORDERED: LYRICA PO (03:26)
[2017-02-16] MEDS ORDERED: COREG3.125 MG PO (03:26)
[2017-02-16] MEDS ORDERED: MILK OF MAGNESIA PO (03:27)
[2017-02-16] MEDS ORDERED: SIMVASTATIN20 MG PO (03:27)
[2017-02-16] MEDS ORDERED: DOCUSATE SODIU100 MG PO (03:27)
[2017-02-16] MEDS ORDERED: LASIX PO (03:27)
[2017-02-16] MEDS ORDERED: VANCOCIN HCL2 GM IV (03:28)
[2017-02-16] MEDS ORDERED: LEVEMIR SUBQ (03:33)
[2017-02-16] MEDS ORDERED: FERROUS GLUCON324 M1 PO (03:33)
[2017-02-16] MEDS ORDERED: NOVOLOG100 U/ML (03:34)
[2017-02-16] MEDS ORDERED: NOVOLOG100 U/ML SUBQ (03:34)
[2017-02-16] MEDS ORDERED: PERCOCET5/325 PO (03:35)
[2017-02-16 05:46] LABS: POC - CKMB <1.0 ng/mL (0.0-7.9); POC - TROPONIN <0.05 ng/mL (<=0.05)
[2017-02-16 06:15] LABS: DIFF IND NO; EOSINOPHIL# 0.1 X10e3 (0-0.7); EOSINOPHIL% 0.7 % (0.0-7.0); HEMOGLOBIN 8.5 gm/dL (13.0-16.0); MEAN CELL VOLUME 82.4 FL (83-96); MEAN CORPUSCULAR HEMOGLOBIN 26.9 PG (28-34); MEAN CORPUSCULAR HGB CONC 32.6 g/dL (30-36); MEAN PLATELET VOLUME 6.8 FL (6.5-11.5); MONOCYTE# 0.5 X10e3 (0-1.0); NEUTROPHIL# 11.9 X10e3 (1.5-7.1); NEUTROPHIL% 88.3 % (40-75); PLATELET COUNT 689 X10e3 (140-420); RED BLOOD COUNT 3.15 X10e (3.90-5.60); RED CELL DISTRIBUTION WIDTH 15.2 % (11.0-15.5); WHITE BLOOD COUNT 13.5 X10e3 (4.0-10.5)
[2017-02-16 06:28] LABS: INR 1.1; PARTIAL THROMBOPLASTIN TIME 36.1 SECONDS (23.5-31.3)
[2017-02-16 06:41] LABS: ALBUMIN SERUM 1.3 g/dL (3.5-5.0); BILIRUBIN, DIRECT 0.1 mg/dL (0.0-0.2); BILIRUBIN,INDIRECT 0.2 mg/dL (0.0-0.9); BILIRUBIN,TOTAL 0.3 mg/dL (0.2-2.0); CALCIUM SERUM 8.2 mg/dL (8.4-10.2); POTASSIUM 4.2 mmol/L (3.5-5.1); PROTEIN TOTAL SERUM 6.3 g/dL (6.0-8.3)
[2017-02-17 00:09] LABS: URINE SOURCE CLEAN CATCH
[2017-02-17 00:14] LABS: URINE APPEARANCE CLEAR; URINE BILIRUBIN NEG (NEG); URINE BLOOD 2+ (NEG); URINE COLOR YELLOW; URINE GLUCOSE 500 MG/DL (NEG); URINE KETONE NEG (NEG); URINE LEUKOCYTE ESTERASE NEG (NEG); URINE NITRATE NEG (NEG); URINE PH 5.5 (5-8); URINE PROTEIN TRACE (NEG); URINE SPECIFIC GRAVITY 1.017 (1.003-1.035)
[2017-02-17 00:16] LABS: URINE BACTERIA AUWI NEG (NEGATIVE); URINE SQUAMOUS EPITHELIAL CELL NONE SEEN /[HPF]
[2017-02-17 00:24] LABS: CREATININE,RANDOM URINE 101 mg/dL; TOTAL PROTEIN,RANDOM URINE 37 mg/dl (<10)
[2017-02-17 01:09] LABS: CULTURE INDICATED? NO
[2017-02-17 06:47] LABS: BASOPHIL# 0.1 X10e3 (0-0.3); BASOPHIL% 1.3 % (0-2.5); EOSINOPHIL# 0.1 X10e3 (0-0.7); EOSINOPHIL% 0.7 % (0.0-7.0); HEMOGLOBIN 8.6 gm/dL (13.0-16.0); LYMPHOCYTE# 0.8 X10e3 (1.0-3.5); MEAN CELL VOLUME 82.5 FL (83-96); MEAN CORPUSCULAR HEMOGLOBIN 27.4 PG (28-34); MEAN CORPUSCULAR HGB CONC 33.3 g/dL (30-36); MEAN PLATELET VOLUME 6.8 FL (6.5-11.5); MONOCYTE# 0.6 X10e3 (0-1.0); MONOCYTE% 6.2 % (3.0-12.0); NEUTROPHIL# 8.2 X10e3 (1.5-7.1); NEUTROPHIL% 83.8 % (40-75); PLATELET COUNT 627 X10e3 (140-420); RED BLOOD COUNT 3.15 X10e (3.90-5.60); RED CELL DISTRIBUTION WIDTH 15.3 % (11.0-15.5); WHITE BLOOD COUNT 9.8 X10e3 (4.0-10.5)
[2017-02-17 06:48] LABS: DIFF IND NO
[2017-02-17 10:33] LABS: ALBUMIN SERUM 1.1 g/dL (3.5-5.0); BILIRUBIN,TOTAL 0.3 mg/dL (0.2-2.0); BUN/CREATININE RATIO 17.77; CALCIUM SERUM 7.9 mg/dL (8.4-10.2); CREATININE SERUM 0.9 mg/dL (0.6-1.4); GLOM FILT RATE Estimated 99.9 mL/min (>60); MAGNESIUM 1.6 mg/dL (1.6-3.0); PHOSPHOROUS 4.4 mg/dL (2.5-4.6); POTASSIUM 4.9 mmol/L (3.5-5.1); PROTEIN TOTAL SERUM 5.3 g/dL (6.0-8.3)
[2017-02-18 05:55] LABS: HEMATOCRIT 25.4 % (38.0-50.0); HEMOGLOBIN 8.2 gm/dL (13.0-16.0); MEAN CELL VOLUME 83.3 FL (83-96); MEAN CORPUSCULAR HGB CONC 32.4 g/dL (30-36); RED BLOOD COUNT 3.05 X10e (3.90-5.60); WHITE BLOOD COUNT 8.5 X10e3 (4.0-10.5)
[2017-02-18 06:59] LABS: BUN/CREATININE RATIO 17.5; CREATININE SERUM 0.8 mg/dL (0.6-1.4); GLOM FILT RATE Estimated 104.9 mL/min (>60); MAGNESIUM 1.5 mg/dL (1.6-3.0); PHOSPHOROUS 5.1 mg/dL (2.5-4.6); POTASSIUM 4.9 mmol/L (3.5-5.1)
[2017-02-19 06:05] LABS: HEMATOCRIT 25.3 % (38.0-50.0); HEMOGLOBIN 8.5 gm/dL (13.0-16.0); MEAN CELL VOLUME 81.8 FL (83-96); MEAN CORPUSCULAR HEMOGLOBIN 27.5 PG (28-34); MEAN CORPUSCULAR HGB CONC 33.6 g/dL (30-36); MEAN PLATELET VOLUME 6.9 FL (6.5-11.5); RED BLOOD COUNT 3.09 X10e (3.90-5.60); RED CELL DISTRIBUTION WIDTH 14.7 % (11.0-15.5); WHITE BLOOD COUNT 9.2 X10e3 (4.0-10.5)
[2017-02-19 06:45] LABS: BUN/CREATININE RATIO 14.44; CALCIUM SERUM 8.2 mg/dL (8.4-10.2); CREATININE SERUM 0.9 mg/dL (0.6-1.4); GLOM FILT RATE Estimated 99.9 mL/min (>60); MAGNESIUM 1.4 mg/dL (1.6-3.0); POTASSIUM 3.8 mmol/L (3.5-5.1)
[2017-02-20 05:36] LABS: HEMATOCRIT 24.8 % (38.0-50.0); HEMOGLOBIN 8.1 gm/dL (13.0-16.0); MEAN CELL VOLUME 82.4 FL (83-96); MEAN CORPUSCULAR HGB CONC 32.7 g/dL (30-36); MEAN PLATELET VOLUME 6.7 FL (6.5-11.5); RED BLOOD COUNT 3.02 X10e (3.90-5.60); RED CELL DISTRIBUTION WIDTH 14.9 % (11.0-15.5); WHITE BLOOD COUNT 8.7 X10e3 (4.0-10.5)
[2017-02-20 06:45] LABS: ALBUMIN SERUM 1.2 g/dL (3.5-5.0); CALCIUM SERUM 7.8 mg/dL (8.4-10.2); MAGNESIUM 1.7 mg/dL (1.6-3.0)
[2017-02-21 06:25] LABS: HEMATOCRIT 23.6 % (38.0-50.0); HEMOGLOBIN 7.9 gm/dL (13.0-16.0); MEAN CELL VOLUME 81.9 FL (83-96); MEAN CORPUSCULAR HEMOGLOBIN 27.4 PG (28-34); MEAN CORPUSCULAR HGB CONC 33.4 g/dL (30-36); MEAN PLATELET VOLUME 6.9 FL (6.5-11.5); RED BLOOD COUNT 2.88 X10e (3.90-5.60); RED CELL DISTRIBUTION WIDTH 14.8 % (11.0-15.5); WHITE BLOOD COUNT 8.8 X10e3 (4.0-10.5)
[2017-02-21 06:51] LABS: BUN/CREATININE RATIO 19.09; CREATININE SERUM 1.1 mg/dL (0.6-1.4); GLOM FILT RATE Estimated 78.4 mL/min (>60); MAGNESIUM 1.9 mg/dL (1.6-3.0); PHOSPHOROUS 3.7 mg/dL (2.5-4.6)
[2017-03-15] MEDS ORDERED: PERCOCET 7.5-31 EACH PO (15:32)
[2017-03-15] MEDS ORDERED: ELIQUIS5 MG PO (15:42)
[2017-03-15] MEDS ORDERED: COATED ASPIRIN325 M1 PO (15:44)
[2017-03-15] MEDS ORDERED: MAG-OXIDE400 MG PO (15:45)
[2017-03-15] MEDS ORDERED: FLOMAX0.4 M1 (15:45)
== END 2017-02-21 15:08 | DRG 291 ==
LOC: CED 03:16 → CEDOF 07:30 → C5B 07:30 → CEDOF 08:15 → CED 08:15 → C3A PCU 17:16 → C5B 02-17 07:29
PROVIDERS: Internal Medicine; Internal Medicine Nephrology; Student in an Organized Health Care Education/Training Program
DX: I11.0 Hypertensive heart disease with heart failure (principal); E43 Unspecified severe protein-calorie malnutrition; E11.40 Type 2 diabetes mellitus with diabetic neuropathy, unspecified; E87.1 Hypo-osmolality and hyponatremia; E11.628 Type 2 diabetes mellitus with other skin complications; L03.115 Cellulitis of right lower limb; Z68.41 Body mass index [BMI] 40.0-44.9, adult; I50.31 Acute diastolic (congestive) heart failure; N50.89 Other specified disorders of the male genital organs; E11.65 Type 2 diabetes mellitus with hyperglycemia; R33.9 Retention of urine, unspecified; D50.9 Iron deficiency anemia, unspecified; E66.9 Obesity, unspecified; E83.39 Other disorders of phosphorus metabolism; Z86.14 Personal history of Methicillin resistant Staphylococcus aureus infection; Z89.512 Acquired absence of left leg below knee; Z79.4 Long term (current) use of insulin; B36.8 Other specified superficial mycoses; M62.3 Immobility syndrome (paraplegic); E88.09 Other disorders of plasma-protein metabolism, not elsewhere classified; E11.649 Type 2 diabetes mellitus with hypoglycemia without coma; S81.801A Unspecified open wound, right lower leg, initial encounter; Z91.012 Allergy to eggs
CPT/HCPCS: 36415; 71010; 80048; 80053; 80076; 80202; 81003; 82040; 82553; 82570; 82947; 83605; 83735; 83880; 84100; 84156; 84484; 85025; 85027; 85610; 85730; 87040; 87086; 93005; 93306; 96374; 97110; 97163; 97167; 97530; 97535; 99285; 99291; J1650; J1815; J1940; J3370; J3475

== ENCOUNTER → 2017-03-15 | Outpatient (CLI) | payer OTHER ==
[~2017-03-15] MED LIST changes: +COATED ASPIRIN325 M1 PO; +COREG3.125 MG PO; +DOCUSATE SODIU100 MG PO; +ELIQUIS5 MG PO; +FERROUS GLUCON324 M1 PO; +FLOMAX0.4 M1; +LANTUS100 UNITS/ SUBQ; +LASIX PO; +LEXAPRO20 MG PO; +MAG-OXIDE400 MG PO; +MILK OF MAGNESIA PO; +NOVOLOG100 U/ML; +PERCOCET 7.5-31 EACH PO; +PERCOCET5/325 PO; +PROMOD946 ML PO; +VANCOCIN HCL2 GM IV
[2017-03-15 15:29] LABS: HEMATOCRIT 26.4 % (38.0-50.0); HEMOGLOBIN 8.5 gm/dL (13.0-16.0); MEAN CELL VOLUME 78.7 FL (83-96); MEAN CORPUSCULAR HEMOGLOBIN 25.3 PG (28-34); MEAN CORPUSCULAR HGB CONC 32.1 g/dL (30-36); MEAN PLATELET VOLUME 6.6 FL (6.5-11.5); PLATELET COUNT 503 X10e3 (140-420); RED BLOOD COUNT 3.35 X10e (3.90-5.60); WHITE BLOOD COUNT 8.8 X10e3 (4.0-10.5)
[2017-03-15 15:58] LABS: BUN/CREATININE RATIO 24.44; CALCIUM SERUM 8.8 mg/dL (8.4-10.2); CREATININE SERUM 0.9 mg/dL (0.6-1.4); GLOM FILT RATE Estimated 99.9 mL/min (>60)
[2017-03-15 16:01] LABS: POTASSIUM 5.6 mmol/L (3.5-5.1)
== END | disposition home or self-care (01) ==
LOC: CAMB 13:42 → EDSTATUS 14:00 → CAMB 14:00
PROVIDERS: Orthopaedic Surgery
DX: Z01.812 Encounter for preprocedural laboratory examination (principal); M86.9 Osteomyelitis, unspecified; M00.9 Pyogenic arthritis, unspecified
CPT/HCPCS: 36415; 80048; 85027; 85652; 86140; 86850; 86900; 86901

== ENCOUNTER 2017-03-20 10:18 | Inpatient (IN) | payer OTHER ==
--- NOTE | ~2017-03-20 | A ---
[facility] Nutrition Therapy DATE: 03/22/17 Patient: GOLD WELLS Physician: ALFIE Address: [address] [facility] Room/Bed: [address] [place] [address], Zip: [place] [address] Admit Date: 03/20/17 Date of : [birth year] Height: 5 9.5 Weight: 233 105.8 NUTRITIONAL ASSESSMENT: REASON: Consult re: diet education Dx: right ankle infection s/p L. BKA PMH: DM, protein malnutrition, HLD, HTN, DKA Anthropometrics: ht: 5'9" wt: 233# (105.8 kg) BMI 33 Labs: Na+ 129, Cl- 99, Glu 205, Ca++ 8.0, Alb 1.2 Meds: novolog, levemir, colace Skin Integrity: L. BKA Diet: consistent carbohydrate Assessment: Chart reviewed, events noted. Seeing pt for consult re: diet education. Pt was previously educated by RD during admits on 02/09 and 02/17. RD network intern visited pt at bedside. Pt has been in rehab since previous admit and reports that eating the consistent carbohydrate diet at his rehab facility has "straightened him out". Pt was very motivated to keep his diabetes under control. RD network intern provided written and verbal education on carbohydrate counting. Pt is being d/c today to rehab. RD will remain available. Intervention: 1. Diet education 2. Consistent carbohydrate diet Recommendations: 1. Continue to follow consistent carbohydrate diet. 2. Pt would benefit from following up with an outpatient dietitian or certified caregiver for diabetes management. Consult RD for further nutritional needs. Respectfully, SUJATHA VENTURA, sports management internship Yesika Lucas, EMERY, LD Food and Nutritional Services [facility] cc: client file
--- NOTE | ~2017-03-20 | DS ---
Unit #: [id number] #: [id number] Patient: GOLD WELLS [id number] [address] [place], [place] [address] [id number] I MR#: [id number] NAME: GOLD WELLS ROOM: 477 Age: 51 Sex: M Admission Date: 03/20/2017 : 1965 Discharge Date: 03/22/2017 Attending Physician: Veronica Barbour M.D. Primary Care Physician: Jennifer Cohn M.D. DISCHARGE SUMMARY CHIEF COMPLAINT Right ankle infection. HISTORY OF PRESENT ILLNESS The patient is a 51-year-old poorly controlled insulin diabetic with diabetic peripheral neuropathy. He has undergone previous left mmmvn-tsi-ltes amputation for calcaneal osteomyelitis seven weeks ago. The patient now has worsening right ankle swelling, pain, ulcerations and drainage. X-rays and MRI are consistent with deep infection of the ankle joint with osteomyelitis on both sides of the joint. He has failed nonoperative care and was, therefore, admitted for right tfvhj-hqd-flha amputation. HOSPITAL COURSE The patient was taken to the operating room on the date of admission, where he underwent right mledi-ddt-bsgg amputation. There were no operative complications. He had a stable postoperative course. He was seen by internal medicine service for medical management and placed on sliding scale insulin. His drain was removed on the second postoperative day. Vital signs remained stable and the patient remained afebrile. The patient's hematocrit dropped to 21.7 on the first postoperative day. He was given one unit of blood and his hematocrit improved to 23.1%. He was ready for discharge on the second postoperative day back to rehabilitation, with plans to leave the cast on for 10 days. FINAL DIAGNOSIS Right ankle osteomyelitis. PROCEDURES PERFORMED Right atngi-dxa-twbw amputation on 03/20/2017. DISPOSITION/RECOMMENDATIONS 1. The patient is discharged to rehabilitation. 2. He is to continue upper extremity rehabilitation and is pending fitting of his left zwbcg-mmf-emxe prosthesis by [facility] [facility]. 3. He will remain nonweightbearing on both lower extremities until he gets fitted with his left iboeh-ygy-jnzu prosthesis. His case will remain intact on his right leg until he follows up with Dr. Barbour. DISCHARGE MEDICATIONS 1. Lexapro 20 mg p.o. daily. 2. Lasix 40 mg p.o. daily. 3. Flomax 0.4 mg p.o. daily. Unit #: [id number] #: [id number] Patient: GOLD WELLS 4. Percocet 7.5/325 mg 1 or 2 p.o. q.6 h. p.r.n. pain. 5. Coreg 3.125 mg p.o. b.i.d. 6. Ferrous gluconate 324 mg p.o. b.i.d. 7. Eliquis 5 mg p.o. b.i.d. 8. Enteric coated aspirin 325 mg p.o. daily. 9. Lyrica 150 mg p.o. t.i.d. 10. Zocor 20 mg p.o. at nighttime. 11. Magnesium oxide 40 mg p.o. q.8 h. p.r.n. 12. Levemir insulin 10 units subcutaneously at nighttime. 13. NovoLog insulin per sliding scale. FOLLOWUP Followup with Dr. Barbour in 10 days for cast removal and staple removal. Call [phone] to make the appointment. Dictated by.Navdeep Lopez/claudy TD: 03/22/2017 10:52 JOB #: [id number] CC: Veronica Barbour M.D. DISCHARGE SUMMARY Page 1 of 1 X Iraida Barbour MD X DISCHARGE SUMMARY
--- NOTE | ~2017-03-20 | CO ---
Unit #: [id number] #: [id number] Patient: GOLD WELLS [id number] [address] [address] [id number] I MR#: [id number] NAME: GOLD WELLS ROOM: 47 Age: 51 Sex: M Admission Date: 03/20/2017 : 1965 Attending Physician: Veronica Barbour M.D. Primary Care Physician: Jennifer Cohn M.D. Consultation Date: 03/20/2017 CONSULTATION REPORT REASON FOR CONSULTATION Medical management. HISTORY OF PRESENT ILLNESS The patient is a very pleasant 51-year-old male who unfortunately had developed intractable osteomyelitis, as well as poor wound healing on his right lower extremity, and earlier this afternoon has undergone right bqmtg-nnr-wxof amputation. We were asked to evaluate and/or follow along for medical management. Recently he had undergone a left uikyn-hxb-bmqv amputation and was actually in rehab as an outpatient secondary to his surgery. It was noted that he had a nonhealing wound, and subsequently decision was made for surgical intervention per orthopedic services. PAST MEDICAL HISTORY 1. Insulin-dependent diabetes. 2. Recent history of left ilnyh-mzp-kpgn amputation secondary to left calcaneal osteomyelitis. 3. Prior history of MRSA sepsis. 4. Severe protein malnutrition. 5. Diabetic neuropathy. 6. Hyperlipidemia. 7. Hypertension. 8. Iron deficiency anemia. 9. Prior history of DKA admissions. ALLERGIES None. CURRENT HOME MEDICATIONS 1. Lyrica. 2. Lexapro. 3. Coreg. 4. Colace. 5. Lasix. 6. Simvastatin. 7. Iron. 8. Insulin, Levemir, as well as NovoLog regime per rehab facility. PAST SURGICAL HISTORY Please see above. SOCIAL HISTORY Unit #: [id number] #: [id number] Patient: GOLD WELLS Patient denies any alcohol, tobacco, or any illicit drug use. He is currently in a rehabilitation facility secondary to recent left lower extremity surgical intervention. FAMILY HISTORY Diabetes, hypertension, and coronary artery disease. REVIEW OF SYSTEMS Please see History of Present Illness. Twelve points otherwise negative except for those positive and noted in the History of Present Illness. PHYSICAL EXAMINATION VITAL SIGNS: Temperature 97.9, pulse 90, respiratory rate 16, and blood pressure 110/74. GENERAL APPEARANCE: Patient is a 51-year-old male currently lying comfortably in no acute distress. HEAD: Atraumatic and normocephalic. EARS: Tympanic membranes do not reveal any erythema or injection. NECK: Supple. CARDIOVASCULAR: S1 and S2, without murmur. RESPIRATORY: Clear. GASTROINTESTINAL/ABDOMEN: Nontender and nondistended. LOWER EXTREMITIES: Right lower extremity, as well as left lower extremity dressed. Wound V.A.C. is present in right lower extremity. NEUROLOGIC: Alert and oriented x3. No evidence of any focal nerve deficits. DIAGNOSTIC STUDIES LABORATORY: Sodium of 130, glucose 321, and chloride 95 on this morning's BMP. CBC noted to show hemoglobin of 8.8 and MCV of 78. INITIAL IMPRESSION 1. Right foot nonhealing wound/osteomyelitis, status post right cusyh-ega-zppo amputation. 2. Unsalvageable right ankle. 3. Poorly-controlled diabetes. 4. Insulin-dependent diabetes type 2. 5. Anemia, likely iron deficiency. 6. Prior history of methicillin-resistant Staphylococcus aureus sepsis. 7. Hypertension history. 8. Anxiety/depression. 9. Diabetic neuropathy. 10. Hyperlipidemia. PLAN NovoLog low-dose sliding scale insulin with Accu-Cheks q.a.c. and at bedtime. Levemir 10 units subcutaneous at bedtime starting on March 21, 2017, when patient has increased p.o. intake. Routine laboratory studies in the a.m. Blood pressure will be followed, but for now, it appears stable, especially while he is on morphine pump. Home medications will be adjusted appropriately. Laboratory studies will be followed. Thank you, Dr. Barbour, for this consultation. We will follow along in regards to the overall care of this patient. Dictated by... Yoan Leiva M.D. Unit #: [id number] #: [id number] Patient: GOLD WELLS ISN/roz TD: 03/20/2017 20:29 JOB #: [id number] CONSULTATION REPORT Page 1 of 1 X Yoan Leiva MD CONSULTATION REPORT
--- NOTE | ~2017-03-20 | OR ---
Unit #: [id number] #: [id number] Patient: GOLD WELLS [id number] [address] [place], [place] [address] [id number] I MR#: [id number] NAME: GOLD WELLS ROOM: 477 Date of Procedure: 03/20/2017 Admission Date: 03/20/2017 Surgeon: Veronica Barbour M.D. : 1965 Attending Physician: Veronica Barbour M.D. Primary Care Physician: Jennifer Cohn M.D. OPERATIVE REPORT PREOPERATIVE DIAGNOSIS Right ankle osteomyelitis with open draining wound. POSTOPERATIVE DIAGNOSIS Right ankle osteomyelitis with open draining wound. PROCEDURE PERFORMED Right isdxf-ugj-ypcz amputation (01087). ASSISTANTS MD Codi and ANNETTE Wheeler. INDICATIONS FOR SURGERY The patient is a 51-year-old poorly controlled diabetic with history of previous left rdaxg-yci-vtyt amputation for calcaneal osteomyelitis seven weeks ago. He now has an open draining wound of his right ankle with radiographs and MRI which documents osteomyelitis of the ankle joint. The patient has an unsalvageable leg with open draining wound. DESCRIPTION OF PROCEDURE The patient was taken to the operating room and placed in a supine position and general anesthetic was induced. The right ankle was identified as the correct operative location during the time-out procedure. The IV antibiotic protocol was followed. The right leg was then prepped and draped in usual sterile fashion. The leg was exsanguinated with an Esmarch bandage and the tourniquet inflated to 300 mmHg. A transverse incision was made overlying the midshaft tibia 14 cm distal to the knee joint. It was then extended posteriorly and distally and a long posterior flap. The tibia was exposed with subperiosteal dissection. Hohmann retractors were placed. The sagittal saw was used to cut the tibia and to bevel the anterior distal edge. The anterior compartment was divided. The anterior neurovascular bundle was doubly ligated with 0 silk. The fibula was then exposed subperiosteally and cut 2 cm proximal to the tibial osteotomy with the microsagittal saw. Amputation knife was then used to divide the posterior soft tissues and the leg was removed and sent to Pathology for examination. The muscle appeared viable with excellent bleeding and there was no evidence of deep infection. The tourniquet was released with a total tourniquet time of 20 minutes. The peroneal vessels were doubly ligated with 0 silk. The tibial vessels were doubly ligated with 0 silk and the tibial nerve was dissected high in the Unit #: [id number] #: [id number] Patient: GOLD WELLS wound and cut proximal to the level of the tibial osteotomy. The wound was copiously irrigated. Bleeding was controlled with electrocautery. The deep posterior muscle fascia was then repaired to the anterior muscle fascia and periosteum of the tibia with multiple 0 Vicryl nqacij-li-pevkv sutures. This closure was performed over a medium Hemovac drain. Additional subcutaneous sutures were placed in layers using 2-0 and 3-0 Vicryl. The skin was closed with skin uri. Xeroform gauze, dressing, sponges, Kerlix, cast padding, and a long leg fiberglass cast were applied. The patient was then transported to the recovery room in stable condition. ESTIMATED BLOOD LOSS 100 mL. COMPLICATIONS None. SPECIMENS Right leg. TOURNIQUET TIME 20 minutes. Dictated by.Navdeep Lopez/akira TD: 03/20/2017 16:19 JOB #: [id number] OPERATIVE REPORT Page 1 of 1 X Iraida Barbour MD X PROCEDURE OPERATIVE NOTE
--- NOTE | ~2017-03-20 | HP ---
Unit #: [id number] #: [id number] Patient: GOLD WELLS [id number] [address] [address] [id number] MR#: [id number] NAME: GOLD WELLS ROOM: 477 Age: Sex: M Admission Date: 03/20/2017 : 1965 Attending Physician: Veronica Barbour M.D. Primary Care Physician: Jennifer Cohn M.D. HISTORY AND PHYSICAL CHIEF COMPLAINT Right ankle infection. HISTORY OF PRESENT ILLNESS The patient is a 51-year-old male with poorly controlled insulin dependent diabetes and diabetic peripheral neuropathy who has undergone previous left below the knee amputation for calcaneal osteomyelitis seven weeks ago. The patient is now admitted for right below the knee amputation due to septic arthritis and osteomyelitis of his ankle joint. The patient has failed nonoperative care. PAST MEDICAL HISTORY Remarkable for: 1. Insulin dependent diabetes. 2. Diabetic neuropathy. 3. Severe protein malnutrition. 4. Hyperlipidemia. 5. Hypertension. 6. Iron deficiency anemia. 7. History of diabetic ketoacidosis. 8. History of methicillin resistant Staph aureus sepsis. HOME MEDICATIONS 1. Lyrica. 2. Lexapro. 3. Coreg. 4. Colace. 5. Lasix. 6. Simvastatin. 7. Vancomycin. 8. Iron. 9. Insulin. 10. Percocet. DRUG ALLERGIES None. PAST SURGICAL HISTORY As noted above. SOCIAL HISTORY The patient has been in rehabilitation for substance abuse. He currently denies alcohol, smoking or drugs. Unit #: [id number] #: [id number] Patient: GOLD WELLS FAMILY HISTORY Diabetes, hypertension. REVIEW OF SYSTEMS Unremarkable for fevers or chills. PHYSICAL EXAMINATION GENERAL: This is a middle aged male who appears older than his stated age. PHARYNX: Clear. NECK: Supple without masses. HEART: Regular sinus rhythm without murmurs or gallops. LUNGS: Clear. ABDOMEN: Soft and nontender without masses or organomegaly. Evaluation of the right foot demonstrates marked swelling of the ankle. He has a 4 cm diameter wound on the anterior medial ankle with a black, dry eschar. He also has a 4 cm diameter ulceration on the lateral heal again with a black, dry eschar. The wound is non-fluctuant. There is no ascending lymphangitis. There is no fluctuance. MRI of the right ankle documents osteomyelitis of the distal tibia and talus which is extensive. ADMITTING DIAGNOSES Right ankle septic arthritis with underlying osteomyelitis. PLAN The patient has an unsalvageable ankle. He has poorly controlled diabetes which is most likely complicating his ability to heal. He will, therefore, undergo right below the knee amputation. This procedure was described along with risks of bleeding, infection, nerve damage, need for further surgery in the future, failure to heal the wounds, failure to use a prosthesis, need for higher level amputation, anesthetic complications. He understands the above risks and agrees to proceed. Dictated by Navdeep Barba/dana TD: 03/19/2017 08:28 JOB #: [id number] HISTORY AND PHYSICAL Page 1 of 1 X Iraida Barbour MD X HISTORY AND PHYSICAL
[~2017-03-20 10:18] MED LIST changes: -LANTUS100 UNITS/ SUBQ; -PROMOD946 ML PO
[2017-03-20 11:20] LABS: BASOPHIL# 0.1 X10e3 (0-0.3); BASOPHIL% 1.1 % (0-2.5); EOSINOPHIL# 0.2 X10e3 (0-0.7); EOSINOPHIL% 2.6 % (0.0-7.0); HEMATOCRIT 28.2 % (38.0-50.0); HEMOGLOBIN 8.8 gm/dL (13.0-16.0); LYMPHOCYTE# 1.1 X10e3 (1.0-3.5); LYMPHOCYTE% 13.1 % (17.0-45.0); MEAN CELL VOLUME 78.1 FL (83-96); MEAN CORPUSCULAR HEMOGLOBIN 24.5 PG (28-34); MEAN CORPUSCULAR HGB CONC 31.4 g/dL (30-36); MEAN PLATELET VOLUME 6.9 FL (6.5-11.5); MONOCYTE# 0.5 X10e3 (0-1.0); MONOCYTE% 6.2 % (3.0-12.0); NEUTROPHIL# 6.5 X10e3 (1.5-7.1); PLATELET COUNT 497 X10e3 (140-420); RED BLOOD COUNT 3.61 X10e (3.90-5.60); RED CELL DISTRIBUTION WIDTH 16.3 % (11.0-15.5); WHITE BLOOD COUNT 8.4 X10e3 (4.0-10.5)
[2017-03-20 11:25] LABS: DIFF IND NO
[2017-03-20] MEDS ORDERED: LANTUS100 UNITS/ SUBQ (11:37)
[2017-03-20] MEDS ORDERED: PROMOD946 ML PO (11:38)
[2017-03-20 12:03] LABS: BUN/CREATININE RATIO 22.5; CALCIUM SERUM 9.1 mg/dL (8.4-10.2); CREATININE SERUM 0.8 mg/dL (0.6-1.4); GLOM FILT RATE Estimated 104.9 mL/min (>60)
[2017-03-21 04:19] LABS: HEMATOCRIT 21.7 % (38.0-50.0); HEMOGLOBIN 7.1 gm/dL (13.0-16.0); MEAN CELL VOLUME 77.3 FL (83-96); MEAN CORPUSCULAR HEMOGLOBIN 25.2 PG (28-34); MEAN CORPUSCULAR HGB CONC 32.6 g/dL (30-36); MEAN PLATELET VOLUME 6.7 FL (6.5-11.5); RED BLOOD COUNT 2.81 X10e (3.90-5.60); RED CELL DISTRIBUTION WIDTH 16.2 % (11.0-15.5); WHITE BLOOD COUNT 7.9 X10e3 (4.0-10.5)
[2017-03-21 04:41] LABS: BUN/CREATININE RATIO 27.14; CALCIUM SERUM 8.2 mg/dL (8.4-10.2); CREATININE SERUM 0.7 mg/dL (0.6-1.4); GLOM FILT RATE Estimated 110.9 mL/min (>60); MAGNESIUM 1.8 mg/dL (1.6-3.0); POTASSIUM 4.6 mmol/L (3.5-5.1)
[2017-03-22 04:12] LABS: HEMATOCRIT 23.1 % (38.0-50.0); HEMOGLOBIN 7.3 gm/dL (13.0-16.0); MEAN CELL VOLUME 77.4 FL (83-96); MEAN CORPUSCULAR HEMOGLOBIN 24.6 PG (28-34); MEAN CORPUSCULAR HGB CONC 31.7 g/dL (30-36); MEAN PLATELET VOLUME 6.9 FL (6.5-11.5); RED BLOOD COUNT 2.99 X10e (3.90-5.60); RED CELL DISTRIBUTION WIDTH 16.3 % (11.0-15.5); WHITE BLOOD COUNT 8.2 X10e3 (4.0-10.5)
[2017-03-22 04:26] LABS: BUN/CREATININE RATIO 26.25; CREATININE SERUM 0.8 mg/dL (0.6-1.4); GLOM FILT RATE Estimated 104.9 mL/min (>60); MAGNESIUM 1.9 mg/dL (1.6-3.0); POTASSIUM 4.8 mmol/L (3.5-5.1)
== END 2017-03-22 18:00 | DRG 475 ==
LOC: CSUR 10:18 → CPACUOF 10:39 → CSUR 10:39 → CPACUOF 15:40 → C4C 17:00 → CPACUOF 17:00 → C4C 03-22 18:00
PROVIDERS: Family Medicine; Orthopaedic Surgery
PROC: 0Y6H0Z3 Detachment at Right Lower Leg, Low, Open Approach (ICD-10-PCS; principal; 2017-03-20 10:30)
PROC: 30233N1 Transfusion of Nonautologous Red Blood Cells into Peripheral Vein, Percutaneous Approach (ICD-10-PCS; 2017-03-21)
DX: M00.9 Pyogenic arthritis, unspecified (principal); M86.8X7 Other osteomyelitis, ankle and foot; E11.42 Type 2 diabetes mellitus with diabetic polyneuropathy; E11.69 Type 2 diabetes mellitus with other specified complication; E11.65 Type 2 diabetes mellitus with hyperglycemia; D62 Acute posthemorrhagic anemia; I10 Essential (primary) hypertension; Z79.4 Long term (current) use of insulin; E78.5 Hyperlipidemia, unspecified; D50.9 Iron deficiency anemia, unspecified; F41.9 Anxiety disorder, unspecified; F32.9 Major depressive disorder, single episode, unspecified; Z86.14 Personal history of Methicillin resistant Staphylococcus aureus infection; N40.0 Benign prostatic hyperplasia without lower urinary tract symptoms; G54.6 Phantom limb syndrome with pain
CPT/HCPCS: 80048; 82947; 83036; 83735; 85025; 85027; 86850; 86900; 86901; 86923; 88307; 88311; 94760; 97163; 97530; J0690; J1170; J1815; J2250; J2270; J3010; J3370; P9016